=== PATIENT | male | born 1940 | race Caucasian/White ===

== ENCOUNTER 2016-11-19 07:00 | Inpatient (IN) ==
--- NOTE | 2016-11-19 07:53 | XRay Report ---
XR sacrum coccyx Indication: Sacral pain status post fall. Comparison: None. Technique: AP and lateral images of the sacrum and coccyx were obtained. Findings: There is no evidence of displaced fracture. Bone mineralization appears within normal limits. SI joints are bilaterally symmetric. Imaged bowel gas pattern is unremarkable. Fracture of the intratrochanteric right hip is demonstrated. Impression: 1. Intertrochanteric fracture of the right hip is present. 2. No sacral fracture is demonstrated. 11/19/2016 7:50 AM PROCEDURE INTERPRETED AT [facility] DEPARTMENT OF RADIOLOGY Final Report Signed by: Dr. Fortino Hurtado
--- NOTE | 2016-11-19 07:54 | XRay Report ---
XR hip 2v w pelvis RT Indication: Right hip pain status post fall. Comparison: Sacrum same date Technique: AP view of the pelvis with additional AP views of the right hip and internal and external rotation. Findings: An acute comminuted fracture involving the proximal right femur in intertrochanteric region of the hip is demonstrated with [id number] displacement of fracture fragments. Bony structures of pelvis, lower lumbar spine, proximal left femur otherwise is intact. Impression: 1. Acute intertrochanteric fracture right hip is demonstrated. 11/19/2016 7:51 AM PROCEDURE INTERPRETED AT [facility] DEPARTMENT OF RADIOLOGY Final Report Signed by: Dr. Fortino Hurtado
[2016-11-19] MEDS ORDERED: ONDANSETRON 4 MG/2 ML VIAL IV STA (08:16)
[2016-11-19] MEDS ORDERED: MORPHINE 2 MG/1 ML SYRINGE IV STA (08:16)
--- NOTE | 2016-11-19 08:18 | EKG Report ---
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
--- NOTE | 2016-11-19 08:20 | XRay Report ---
XR chest 1V portable Indication: Shortness of breath Comparison: Chest x-ray 04/23/2016 Technique: Portable AP chest was performed. Findings: Heart size is normal. Pulmonary vasculature appears within normal limits. No significant abnormality of the mediastinal contours demonstrated. Lungs are clear for degree of inspiration. Bones and soft tissues demonstrate no significant abnormalities. Impression: 1. No evidence of acute pathology. Atelectatic changes within the lung bases suggested. 11/19/2016 8:17 AM PROCEDURE INTERPRETED AT [facility] DEPARTMENT OF RADIOLOGY Final Report Signed by: Dr. Fortino Hurtado
[2016-11-19] MEDS ORDERED: METOCLOPRAMIDE 10 MG/2 ML VIAL IV STA (08:25)
[2016-11-19] MEDS ORDERED: PANTOPRAZOLE 40 MG VIAL IV STA (08:25)
[2016-11-19 08:30] LABS: Basophils # 0.1 10*3/uL (0.0-0.2); Basophils % 0.4 % (0.0-0.8); Eosinophils # 0.1 10*3/uL (0.0-0.87); Eosinophils % 0.5 % (0.00-10.9); Hematocrit 45.1 VOL% (42.0-52.0); Hemoglobin 16.1 GM/DL (14.0-18.0); Immature Granulocytes % 0.5 %; Immature Granulocytes Absolute 0.08 #; Lymphocytes # 1.5 10*3/uL (1.4-4.0); Lymphocytes % 9.8 % (21.2-54.2); Mean Corpuscular HGB Conc 35.7 GM/DL (32-36); Mean Corpuscular Hemoglobin 33 PG (27-34); Mean Platelet Volume 10.7 FL (9.6-12.0); Monocytes # 0.8 10*3/uL (0.11-0.8); Monocytes % 5.4 % (1.7-12.7); Neutrophils # 12.6 10*3/uL (1.4-7.4); Neutrophils % 83.4 % (38.7-73.9); Platelet Count 152 T/CUMM (130-400); Red Cell Distribution Width 12.4 % (9.3-17.3); White Blood Count 15.1 T/CUMM (4-12)
[2016-11-19] MEDS ORDERED: METOCLOPRAMIDE 10 MG/2 ML VIAL ONE (08:31)
[2016-11-19] MEDS ORDERED: PANTOPRAZOLE 40 MG VIAL IV ONE (08:31)
[2016-11-19] MEDS ORDERED: ONDANSETRON 4 MG/2 ML VIAL ONE (08:31)
[2016-11-19] MEDS ORDERED: MORPHINE 2 MG/1 ML SYRINGE ONE (08:32)
[2016-11-19] MEDS ORDERED: ceFAZolin 2,000 MG in PREMIX 1 EACH IV ONE (08:35)
[2016-11-19 08:38] LABS: PT Patient Result 10.6 SECS; Partial Thromboplastin Time 22.7 SECS (0-40)
[2016-11-19] MEDS ORDERED: ceFAZolin 1,000 MG VIAL ONE (08:52)
--- NOTE | 2016-11-19 08:54 | Orthopedic Consult Note ---
History of Present Illness Chief complaint: Right hip fracture History of present illness: Mr. Frederick is a 76 year old male presenting to [facility] this morning after fall at home reportedly got up fell while trying to get his pants on. His only injury includes pain about the right hip he was unable to bear weight which prompted ER evaluation confirming an intertrochanteric fracture. His family reports that he has been falling a lot lately he does not typically use a cane or a walking device such as a walker. Examination well-developed nourished alert white male has no complaints of pain but either upper extremity with gentle passive range of motion are about the left lower on the right side there is some shortening and mild external rotation to the right lower extremity neurovascularly intact there is no pain about the tibia or knee decreased motion about the right hip secondary to pain X-rays, confirming a minimally displaced intertrochanteric fracture right hip Impression, intertrochanteric fracture right hip Plan: I discussed with he and his family present the diagnosis treatment recommendations include need for operative stabilization of his inotropic fracture plan on using compression hip screw device he is essentially n.p.o. we will proceed later this a.m. is going to be admitted to the hospitalist service due to his multiple medical problems and age. We briefly discussed the postoperative course and the likelihood of rehab Home Medications Medication Instructions Recorded Confirmed Type Allopurinol 300 mg PO DAILY 04/23/16 04/23/16 History Aspirin EC Tab 81 mg PO DAILY 04/23/16 04/23/16 History Dipyridamole/Aspirin 200-25 1 capsule PO BID 04/23/16 04/23/16 History [Aggrenox] Docusate Sodium Cap [Colace Cap] 100 mg PO DAILY 04/23/16 04/23/16 History Donepezil [Aricept] 10 mg PO BEDTIME 04/23/16 04/23/16 History Ferrous Sulfate Tab [Feosol 325 mg PO DAILY 04/23/16 04/23/16 History Original Tab] Fludrocortisone [Florinef] 0.1 mg PO DAILY 04/23/16 04/23/16 History Fluoxetine HCl 40 mg PO DAILY 04/23/16 04/23/16 History Insulin Glargine,Hum.rec.anlog 30 units SUBCUT BEDTIME 04/23/16 04/23/16 History [Lantus SoloStar] Metoprolol Succinate 25 mg PO DAILY 04/23/16 04/23/16 History Multivit-Mins/Iron/Folic/Lycop 1 each PO DAILY 04/23/16 04/23/16 History [Centrum Men's Tablet] Nitroglycerin Sl Tab [Nitrostat] 0.4 mg SL Q5M PRN 04/23/16 04/23/16 History [place]-3/Dha/Epa/Fish Oil [Fish Oil 1 each PO DAILY 04/23/16 04/23/16 History EC 1,200 mg Softgel] Pantoprazole Tab [Protonix Tab] 40 mg PO DAILY 04/23/16 04/23/16 History Saxagliptin HCl [Onglyza] 2.5 mg PO DAILY 04/23/16 04/23/16 History Atorvastatin [Lipitor] 80 mg PO BEDTIME #30 tablet 04/25/16 Rx Allergies Allergy/AdvReac Type Severity Reaction Status Date / Time No Known Allergies Allergy Unverified 04/23/16 15:04 Medical,Surgical,& Family Hx - Medical History Cardio: History of: Hypertension, [place] (STENT), PVD Neurology: History of: Cerebrovascular Accident, Dementia Endocrine: History of: Diabetes Mellitus (IDDM) Rheumatology: History of;: Gout Respiratory: History of: Bronchitis, COPD, Pulmonary Embolism Gastrointestinal: History of: Hemorrhoids (HEMORRHOIDECTOMY) - Surgical History Cardiac Surgeries: Sugical HX of: Femoral-Popliteal Bypass Graft Abdominal Surgeries: Surgical HX of: Cholecystectomy - Family History Family History: Reports;: Family Cancer, Family Diabetes, Family Heart Disease, Family Hypertension - Social History Smoking Status: Former smoker Exam - Constitutional Vitals: Period Temp Pulse Resp BP Sys/Tellez Pulse Ox Last 24 Hr 98.0 F-98.0 F 63-67 18-18 177-189/90-92 93-96 Results - Labs CBC & BMP: 11/19/16 08:04
--- NOTE | 2016-11-19 09:00 | Emergency Department Note ---
Balwinder Ansari Hilary, am scribing for, and in the presence of, Adonis Tolentino MD 08:12. Randa Ansari Phillip K, MD, personally performed the services described in this documentation, ascribed by Clraa Britt in my presence, and it is both accurate and complete 820 . Arrival - Arrival Chief Complaint: Fall Stated Complaint: Fall ED Nursing Triage Note: Pt c/o fall this am slipped while putting on his pants. Denies +LOC. C/O tailbone and right hip pain when he stood up. Mode of Arrival: Stretcher Limitations: No Limitations Source: Patient, RN Notes Reviewed - History of Present Illness HPI Narrative: Pt is a 76 y/o male brought to the ED via EMS for c/o right hip and tailbone pain s/p a fall which happened this AM. He reports that he was trying to put his pants on this morning, lost his balance and fell over landing on his hip. Pt confirms right hip pain but denies LOC. Pt has a PMHx of HTN, PR, PVD, CVA ( right side), Dementia, IDDM and COPD. No other complaints or problems stated in the ED. Onset (ago): hour(s) Consistency: constant Severity: moderate Severity scale (1-10): 3 Quality: sharp Allergies/Adverse Reactions: Allergies Allergy/AdvReac Type Severity Reaction Status Date / Time No Known Allergies Allergy Unverified 04/23/16 15:04 Home Medications: Home Medications Medication Instructions Recorded Confirmed Type Allopurinol 300 mg PO DAILY 04/23/16 04/23/16 History Aspirin EC Tab 81 mg PO DAILY 04/23/16 04/23/16 History Dipyridamole/Aspirin 200-25 1 capsule PO BID 04/23/16 04/23/16 History [Aggrenox] Docusate Sodium Cap [Colace Cap] 100 mg PO DAILY 04/23/16 04/23/16 History Donepezil [Aricept] 10 mg PO BEDTIME 04/23/16 04/23/16 History Ferrous Sulfate Tab [Feosol 325 mg PO DAILY 04/23/16 04/23/16 History Original Tab] Fludrocortisone [Florinef] 0.1 mg PO DAILY 04/23/16 04/23/16 History Fluoxetine HCl 40 mg PO DAILY 04/23/16 04/23/16 History Insulin Glargine,Hum.rec.anlog 30 units SUBCUT BEDTIME 04/23/16 04/23/16 History [Lantus SoloStar] Metoprolol Succinate 25 mg PO DAILY 04/23/16 04/23/16 History Multivit-Mins/Iron/Folic/Lycop 1 each PO DAILY 04/23/16 04/23/16 History [Centrum Men's Tablet] Nitroglycerin Sl Tab [Nitrostat] 0.4 mg SL Q5M PRN 04/23/16 04/23/16 History [place]-3/Dha/Epa/Fish Oil [Fish Oil 1 each PO DAILY 04/23/16 04/23/16 History EC 1,200 mg Softgel] Pantoprazole Tab [Protonix Tab] 40 mg PO DAILY 04/23/16 04/23/16 History Saxagliptin HCl [Onglyza] 2.5 mg PO DAILY 04/23/16 04/23/16 History Atorvastatin [Lipitor] 80 mg PO BEDTIME #30 tablet 04/25/16 Rx Review of System - Review of System 12 point system: reviewed and no additional remarkable complaints except as stated - Review of System Constitutional: Absent: fever Cardiovascular: Absent: syncope Musculoskeletal: Present: leg pain (right hip pain) Medical,Surgical,& Family Hx - Medical History Cardio: History of: Hypertension, [place] (STENT), PVD Neurology: History of: Cerebrovascular Accident, Dementia Endocrine: History of: Diabetes Mellitus (IDDM) Rheumatology: History of;: Gout Respiratory: History of: Bronchitis, COPD, Pulmonary Embolism Gastrointestinal: History of: Hemorrhoids (HEMORRHOIDECTOMY) - Surgical History Cardiac Surgeries: Sugical HX of: Femoral-Popliteal Bypass Graft Abdominal Surgeries: Surgical HX of: Cholecystectomy - Family History Family History: Reports;: Family Cancer, Family Diabetes, Family Heart Disease, Family Hypertension - Social History Smoking Status: Former smoker Exam Vital Signs: Vital Signs Temperature 98.0 F 11/19/16 07:05 Pulse Rate 63 11/19/16 07:30 Respiratory Rate 18 11/19/16 07:05 Blood Pressure 177/92 11/19/16 07:30 O2 Sat by Pulse Oximetry 93 L 11/19/16 07:30 - General General appearance: alert, in no apparent distress - Head Head exam: Present: atraumatic, normocephalic - Eye Eye exam: Present: normal appearance, PERRL, EOMI - ENT ENT exam: Present: mucous membranes moist, TM's normal bilaterally. Absent: mucous membranes dry - Neck Neck exam: Present: full ROM, trachea midline. Absent: tenderness - Chest Chest inspection: Present: symmetric chest wall rise. Absent: tenderness - Respiratory Respiratory exam: Present: normal lung sounds bilaterally. Absent: respiratory distress - Cardiovascular Cardiovascular exam: Present: regular rate, normal rhythm, normal heart sounds. Absent: murmur, rubs, gallop - Abdominal Exam Abdominal exam: Present: soft, normal bowel sounds. Absent: distention, tenderness - Extremities Exam Extremities exam: Absent: full ROM (Right leg is shortened and externally rotated), tenderness (right hip ) - Back Exam Back exam: Present: full ROM. Absent: tenderness - Neurological Exam Neurological exam: Present: alert, oriented X3, CN II-XII intact. Absent: motor sensory deficit - Psychiatric Psychiatric exam: Present: normal affect, normal mood - Skin Skin exam: Present: warm, dry, intact, normal color. Absent: rash Results - Labs CBC & BMP: 11/19/16 08:04 Lab Results: I have reviewed the patients labs Labs: Laboratory Tests 11/19/16 08:04 WBC 15.1 H RBC 4.90 Hgb 16.1 Hct 45.1 Neut % (Auto) 83.4 H Lymph % (Auto) 9.8 L Neut # (Auto) 12.6 H - EKG EKG results: interpreted by SANTY, sinus rhythm (Nonspecific ST-T changes) - Diagnostic Findings Procedure: Chest x-ray: report reviewed by me (No evidence of acute pathology. Atelectatic changes within the lung bases suggested), X-ray: report reviewed by me (Right intertrochanteric hip fracture) Disposition Clinical Impression: Intertrochanteric fracture of right hip Case discussed with: patient Disposition: Still a Patient Condition: Stable Additional Instructions: Admit to the hospitalist and consult orthopedics. Dr. Ruben Tapia saw patient in the ED.
[2016-11-19 09:01] LABS: Albumin 3.8 G/DL (3.4-5.0); Bilirubin,Total 0.9 MG/DL (0.2-1.0); Calcium 9.2 MG/DL (8.5-10.1); Osmolality,Calculated 292.5 MOS/KG (273-304); Potassium 4.5 MMOL/L (3.5-5.1); Total Protein 7.2 G/DL (6.4-8.3)
[2016-11-19] MEDS ORDERED: INSULIN REGULAR 100 UNIT/ML IV STA (09:12)
[2016-11-19] MEDS ORDERED: INSULIN REGULAR 100 UNIT/ML ONE (09:12)
[2016-11-19] MEDS: LACTATED RINGERS 1,000 ML IV SCH ×3 (09:25→19:56)
[2016-11-19] MEDS ORDERED: MORPHINE 2 MG/1 ML SYRINGE IV PRN (09:30)
[2016-11-19] MEDS ORDERED: ONDANSETRON 4 MG/2 ML VIAL IV PRN (09:30)
[2016-11-19] MEDS ORDERED: LACTULOSE 20 GM/30 ML UDCUP PO PRN (09:30)
[2016-11-19] MEDS ORDERED: PROMETHAZINE 25 MG/1 ML VIAL IM PRN (09:30)
[2016-11-19] MEDS ORDERED: GLUCAGON 1 MG VIAL IM PRN ×3 (09:33→18:13)
[2016-11-19] MEDS ORDERED: DEXTROSE 50% 25 GM/50 ML VIAL IV PRN ×3 (09:33→18:13)
--- NOTE | 2016-11-19 10:39 | Anesthesia Post-Op ---
Anesthesia Post OP - Post Ansesthetic Evaluation Patient seen in post op: Yes Resp: within normal limits CV: within normal limits Mental: within normal limits Temp: within normal limits [id number]: within normal limits Nausea and Vomiting: within normal limits Pain: within normal limits
[2016-11-19] MEDS ORDERED: fentaNYL 100 MCG/2 ML VIAL ONE (10:43)
[2016-11-19] MEDS ORDERED: SEVOFLURANE 1 UNIT/15 MINUTE INH ONE (10:43)
[2016-11-19] MEDS ORDERED: MIDAZOLAM 2 MG/2 ML VIAL ONE (10:44)
[2016-11-19] MEDS ORDERED: ACETAMINOPHEN 1,000 MG/100 ML VIAL IV ONE (10:44)
[2016-11-19] MEDS ORDERED: KETAMINE 500 MG/10 ML VIAL ONE (10:44)
[2016-11-19] MEDS ORDERED: ePHEDrine 50 MG/ML AMP ONE (10:44)
--- NOTE | 2016-11-19 10:59 | Hospitalist History & Physical ---
Assessment and Plan (1) Intertrochanteric fracture of right hip Status: Acute Assessment and plan: Surgical repair November 19 Current Visit: Yes (2) Dementia Status: Chronic Assessment and plan: MRI April 2016 showing acute right periventricular stroke with old left frontal ischemic injury and remote cerebellar injury. Presumptive chronic vascular dementia. Current Visit: No (3) Diabetes mellitus Status: Chronic Assessment and plan: Long-standing use of Lantus insulin. Suboptimal control documented previously he will be initiated on intermediate acting insulin with sliding scale coverage. Current Visit: No Qualifiers: Diabetes mellitus type: type 2 History of Present Illness History of present illness: Mr. Frederick is a 76 year old male hospitalized here in April 2016 with MRI showing an acute right parietal periventricular lesion with old ischemic injury in the left frontal lobe and cerebellum. The patient was placed on Aggrenox at that time following a workup showing normal echocardiography and carotid ultrasound. The patient has a established dementia most likely vascular in origin. Earlier today the patient sustained an apparent non-syncopal fall with right hip fracture and was taken from the emergency room to the OR. He is seen in the special care hospital area. Patient is a long-term diabetic on Lantus insulin and Onglyza and on record review indicates consistently poor control of his blood sugars. He has a history of hypertension on chronic active treatment with low-dose beta blockers with old records indicating both a coronary stent and remote femoropopliteal bypass grafting. There is no available history suggesting any active ischemia. Home Medications Medication Instructions Recorded Confirmed Type Allopurinol 300 mg PO DAILY 04/23/16 04/23/16 History Aspirin EC Tab 81 mg PO DAILY 04/23/16 04/23/16 History Dipyridamole/Aspirin 200-25 1 capsule PO BID 04/23/16 04/23/16 History [Aggrenox] Docusate Sodium Cap [Colace Cap] 100 mg PO DAILY 04/23/16 04/23/16 History Donepezil [Aricept] 10 mg PO BEDTIME 04/23/16 04/23/16 History Ferrous Sulfate Tab [Feosol 325 mg PO DAILY 04/23/16 04/23/16 History Original Tab] Fludrocortisone [Florinef] 0.1 mg PO DAILY 04/23/16 04/23/16 History Fluoxetine HCl 40 mg PO DAILY 04/23/16 04/23/16 History Insulin Glargine,Hum.rec.anlog 30 units SUBCUT BEDTIME 04/23/16 04/23/16 History [Lantus SoloStar] Metoprolol Succinate 25 mg PO DAILY 04/23/16 04/23/16 History Multivit-Mins/Iron/Folic/Lycop 1 each PO DAILY 04/23/16 04/23/16 History [Centrum Men's Tablet] Nitroglycerin Sl Tab [Nitrostat] 0.4 mg SL Q5M PRN 04/23/16 04/23/16 History [place]-3/Dha/Epa/Fish Oil [Fish Oil 1 each PO DAILY 04/23/16 04/23/16 History EC 1,200 mg Softgel] Pantoprazole Tab [Protonix Tab] 40 mg PO DAILY 04/23/16 04/23/16 History Saxagliptin HCl [Onglyza] 2.5 mg PO DAILY 04/23/16 04/23/16 History Atorvastatin [Lipitor] 80 mg PO BEDTIME #30 tablet 04/25/16 Rx Allergies Allergy/AdvReac Type Severity Reaction Status Date / Time No Known Allergies Allergy Unverified 04/23/16 15:04 Medical,Surgical,& Family Hx - Medical History Cardio: History of: Hypertension, [place] (STENT), PVD (Femoral pop bypass graft) Neurology: History of: Cerebrovascular Accident (Multifocal with most recent event April 2016), Dementia (Presumptive vascular dementia) Endocrine: History of: Diabetes Mellitus (IDDM) Rheumatology: History of;: Gout Respiratory: History of: Bronchitis, COPD, Pulmonary Embolism - Surgical History Cardiac Surgeries: Sugical HX of: Femoral-Popliteal Bypass Graft Abdominal Surgeries: Surgical HX of: Cholecystectomy Additional Surgical History: Hemorrhoidectomy - Family History Family History: Reports;: Family Cancer, Family Diabetes, Family Heart Disease, Family Hypertension - Social History Smoking Status: Former smoker (None for many years) ROS unobtainable: due to mental status Exam - Constitutional Vitals: Period Temp Pulse Resp BP Sys/Tellez Pulse Ox Last 24 Hr 98.0 F-98.0 F 62-68 18-18 164-209/90-102 93-100 General appearance: over weight - Neck Neck exam: Absent: lymphadenopathy, thyromegaly - Respiratory Respiratory exam: Present: clear to auscultation bilaterally. Absent: rales, rhonchi, wheezes - Cardiovascular Cardiovascular exam: Present: regular rate and rhythm, other (Reduced distal pulses left lower extremity) - GI/Abdominal GI/Abdominal exam: Present: normal bowel sounds. Absent: distended, organomegaly, tenderness - Extremities Exam Extremities exam: Absent: edema - Neurological Exam Neurological exam: Absent: alert Results - Labs CBC & BMP: 11/19/16 08:04 11/19/16 08:04 Labs: Alkaline phosphatase 147 - Impressions Sinus rhythm normal electrocardiogram - Diagnostic Findings Procedure: Chest x-ray: image reviewed by me (Mild aortic ectasia normal heart size coarsening of the lower lobe markings)
--- NOTE | 2016-11-19 11:16 | XRay Report ---
XR hip 2V RT Indication: Intraoperative C-arm fluoroscopy. Comparison: None. Technique: A total of 6 images were obtained intraoperatively using C-arm fluoroscopy. Findings: Images were reviewed and deemed satisfactory by the operative physician. Total fluoroscopy time was 21 seconds. Impression: 1. C-arm usage as detailed. 11/19/2016 11:13 AM PROCEDURE INTERPRETED AT [facility] DEPARTMENT OF RADIOLOGY Final Report Signed by: Dr. Fortino Hurtado
[2016-11-19] MEDS: INSULIN REGULAR 100 UNIT/ML SUBCUT SCH ×3 (12:40→21:20)
[2016-11-19] MEDS: METOPROLOL SUCCINATE XL 25 MG TABLET PO SCH (12:40)
--- NOTE | 2016-11-19 15:28 | Operative Note ---
DATE OF SURGERY: 11/19/2016 PREOPERATIVE DIAGNOSIS: INTERTROCHANTERIC FRACTURE, RIGHT HIP. POSTOPERATIVE DIAGNOSIS: SAME. OPERATIVE PROCEDURE: COMPRESSION HIP SCREW, RIGHT. SURGEON: Zan Miranda Jr., MD ANESTHESIA: General. INDICATIONS: A 76-year-old white male fell this morning, sustaining a mildly displaced intertrochant estefani fracture to the right hip. It was discussed with he and his family the diagnosis and treatment recommendation including the need for stabilization. OPERATIVE PROCEDURE: The patient was taken to the operating room and under general anesthetic positio les in supine position on the fracture table. The right leg placed in a traction boot to the left in a well-padded leg enriquez. Fluoroscopy was brought in to confirm alignment and reduction. The hip w as then prepped and draped in the usual sterile manner. He received Ancef preoperatively. A longitu dinal incision was made over the lateral right hip. Sharp dissection was carried down through skin an d subcutaneous tissue. The IT band was split and the vastus split and reflected anteriorly. A guide pin was placed in the center of the femoral head on both the AP and lateral projections. A 110 mm l ag screw with a 130-degree 4-hole side plate were used to secure reduction. It was secured in a ronel dard technique. Hemostasis was verified. The wound was then irrigated and closed in standard fashio n using 0-Vicryl to the vastus layer as well as IT band layers. Subcutaneous layer was closed with 2 -0 Vicryl and gema for skin. Sterile dressings were applied. He was moved to his bed supine and taken to the recovery room in stable condition.
--- NOTE | 2016-11-19 16:06 | Orthopedic Progress Note ---
Orthopedics - Subjective Interval history: Pain control fair discussed up with PT in a.m. Exam - Constitutional Vitals: Period Temp Pulse Resp BP Sys/Tellez Pulse Ox Last 24 Hr 97.4 F-98.1 F 62-101 16-20 133-209/76-102 92-100 Results - Labs CBC & BMP: 11/19/16 08:04 11/19/16 08:04
[2016-11-19] MEDS: INSULIN NPH 100 UNIT/ML SUBCUT SCH (17:26)
[2016-11-19] MEDS: DIPYRIDAMOLE/ASPIRIN 200-25 MG CAPSULE PO SCH (21:14)
[2016-11-19] MEDS: ATORVASTATIN 40 MG TABLET PO SCH (21:14)
[2016-11-19] MEDS: DONEPEZIL 10 MG TABLET PO SCH (21:14)
[2016-11-20] MEDS: FONDAPARINUX 2.5 MG/0.5 ML SYRINGE SUBCUT SCH (05:28)
[2016-11-20 07:15] LABS: Calcium 8.8 MG/DL (8.5-10.1); Osmolality,Calculated 284.5 MOS/KG (273-304); Potassium 3.8 MMOL/L (3.5-5.1)
[2016-11-20 07:23] LABS: Basophils # 0.1 10*3/uL (0.0-0.2); Basophils % 0.5 % (0.0-0.8); Eosinophils # 0.2 10*3/uL (0.0-0.87); Eosinophils % 1.4 % (0.00-10.9); Hematocrit 38.7 VOL% (42.0-52.0); Immature Granulocytes % 0.4 %; Immature Granulocytes Absolute 0.05 #; Lymphocytes # 2.4 10*3/uL (1.4-4.0); Lymphocytes % 18.4 % (21.2-54.2); Mean Corpuscular HGB Conc 34.9 GM/DL (32-36); Mean Corpuscular Hemoglobin 33 PG (27-34); Mean Corpuscular Volume 94.4 FL (87-102); Mean Platelet Volume 11.3 FL (9.6-12.0); Monocytes # 1.3 10*3/uL (0.11-0.8); Monocytes % 9.6 % (1.7-12.7); Neutrophils % 69.7 % (38.7-73.9); Platelet Count 126 T/CUMM (130-400); Red Cell Distribution Width 12.9 % (9.3-17.3)
[2016-11-20 07:33] LABS: Hemoglobin 13.5 GM/DL (14.0-18.0)
--- NOTE | 2016-11-20 10:17 | Orthopedic Progress Note ---
Assessment and Plan (1) Intertrochanteric fracture of right hip Status: Acute Assessment and plan: Continued care: DVT prophylaxis, pain control, physical therapy Discharge planning to swing bed Current Visit: Yes Orthopedics - Subjective Interval history: Patient seen and examined. No complaints. Sitting up in a chair. Exam - Constitutional Vitals: Period Temp Pulse Resp BP Sys/Tellez Pulse Ox Last 24 Hr 97.1 F-101.2 F 70-109 16-20 133-166/72-94 92-100 - Extremities Exam Extremities exam: Present: normal inspection (Right lower extremity: Dressing clean, dry, intact. Compartments soft. Sensations intact. Pulses 2+. Full active range of motion foot and ankle) Results - Labs CBC & BMP: 11/20/16 06:00 11/20/16 06:00 Lab Results: I have reviewed the past 24 hour labs - Diagnostic Findings Procedure: X-ray: image reviewed by me, report reviewed by me
[2016-11-20] MEDS: INSULIN REGULAR 100 UNIT/ML SUBCUT SCH ×4 (10:28→20:44)
[2016-11-20] MEDS: INSULIN NPH 100 UNIT/ML SUBCUT SCH ×2 (10:31→16:51)
[2016-11-20] MEDS: FLUoxetine 20 MG CAPSULE PO SCH (10:33)
[2016-11-20] MEDS: DIPYRIDAMOLE/ASPIRIN 200-25 MG CAPSULE PO SCH ×2 (10:33→21:07)
[2016-11-20] MEDS: ALLOPURINOL 300 MG TABLET PO SCH (10:33)
[2016-11-20] MEDS: PANTOPRAZOLE 40 MG TABLET PO SCH (10:34)
[2016-11-20] MEDS: DOCUSATE SODIUM 100 MG CAPSULE PO SCH (10:34)
[2016-11-20] MEDS: METOPROLOL SUCCINATE XL 25 MG TABLET PO SCH (10:34)
--- NOTE | 2016-11-20 11:14 | Hospitalist Progress Note ---
Assessment and Plan (1) Hypertension Status: Chronic Assessment and plan: 1)HTN-BP controlled. 2)DM-glucoses are high. Increase SSI to high intensity. On lantus at home, NPH started here, 18U BID. 3)dementia due to strokes- chronic vascular dementia 4)right hip repaired. Current Visit: No Qualifiers: Hypertension type: essential hypertension Qualified Code(s): I10 - Essential (primary) hypertension (2) Diabetes mellitus Status: Chronic Current Visit: No Qualifiers: Diabetes mellitus type: type 2 (3) CKD (chronic kidney disease) Status: Chronic Current Visit: No Qualifiers: Chronic kidney disease stage: stage 3 (moderate) Qualified Code(s): N18.3 - Chronic kidney disease, stage 3 (moderate) (4) Hyperlipidemia Status: Chronic Current Visit: No (5) CVA (cerebral vascular accident) Status: Acute Current Visit: No (6) Dementia Status: Chronic Current Visit: No (7) Intertrochanteric fracture of right hip Status: Acute Current Visit: Yes Hospitalist: Subjective Interval history: Mr Frederick is feeling good today. He complains of some pain in his right hip and his last pain med was last night. Snehal is working on swing bed placement in the same place his is. Exam - Constitutional Vitals: Period Temp Pulse Resp BP Sys/Tellez Pulse Ox Last 24 Hr 97.1 F-101.2 F 70-109 16-20 133-165/72-87 93-100 General appearance: normal weight, no acute distress - Eye Eye exam: Present: EOMI. Absent: scleral icterus - Respiratory Respiratory exam: Present: clear to auscultation bilaterally - Cardiovascular Cardiovascular exam: Present: regular rate and rhythm - GI/Abdominal GI/Abdominal exam: Present: normal bowel sounds, soft. Absent: tenderness - Extremities Exam Extremities exam: Absent: edema - Neurological Exam Neurological exam: Present: alert, oriented X3 Results - Labs CBC & BMP: 11/20/16 06:00 11/20/16 06:00 Lab Results: I have reviewed the past 24 hour labs
[2016-11-20] MEDS: ATORVASTATIN 40 MG TABLET PO SCH (20:44)
[2016-11-20] MEDS: DONEPEZIL 10 MG TABLET PO SCH (20:44)
[2016-11-21] MEDS: FONDAPARINUX 2.5 MG/0.5 ML SYRINGE SUBCUT SCH (05:34)
[2016-11-21 06:33] LABS: Basophils # 0.1 10*3/uL (0.0-0.2); Basophils % 0.4 % (0.0-0.8); Eosinophils # 0.3 10*3/uL (0.0-0.87); Hematocrit 36.6 VOL% (42.0-52.0); Hemoglobin 12.7 GM/DL (14.0-18.0); Immature Granulocytes % 0.7 %; Immature Granulocytes Absolute 0.09 #; Lymphocytes # 2.5 10*3/uL (1.4-4.0); Lymphocytes % 18.9 % (21.2-54.2); Mean Corpuscular HGB Conc 34.7 GM/DL (32-36); Mean Corpuscular Hemoglobin 33 PG (27-34); Mean Corpuscular Volume 95.6 FL (87-102); Mean Platelet Volume 11.6 FL (9.6-12.0); Monocytes # 1.4 10*3/uL (0.11-0.8); Monocytes % 10.5 % (1.7-12.7); Neutrophils % 67.5 % (38.7-73.9); Platelet Count 115 T/CUMM (130-400); Red Blood Count 3.83 MC/CUMM (3.8-5.5); Red Cell Distribution Width 12.8 % (9.3-17.3); White Blood Count 13.3 T/CUMM (4-12)
--- NOTE | 2016-11-21 07:23 | Hospitalist Progress Note ---
Assessment and Plan - Time spent with patient Time spent with patient: Less than 30 minutes (1) Intertrochanteric fracture of right hip Status: Acute Assessment and plan: Continuing postop care and DVT prophylaxis under the guidance of orthopedics. Plan to be discharged to [facility] on Wednesday. Current Visit: Yes (2) Hypertension Status: Chronic Assessment and plan: Blood pressure well controlled. Continue current regimen. Current Visit: No Qualifiers: Hypertension type: essential hypertension Qualified Code(s): I10 - Essential (primary) hypertension (3) Diabetes mellitus Status: Chronic Assessment and plan: Blood sugars have been elevated in the 2-300 range. Continue Accu-Cheks with sliding scale and make adjustments to optimize control. Current Visit: No Qualifiers: Diabetes mellitus type: type 2 (4) CKD (chronic kidney disease) Status: Chronic Assessment and plan: Stable. Avoiding nephrotoxic insults or drugs. Current Visit: No Qualifiers: Chronic kidney disease stage: stage 3 (moderate) Qualified Code(s): N18.3 - Chronic kidney disease, stage 3 (moderate) (5) Hyperlipidemia Status: Chronic Current Visit: No (6) Dementia Status: Chronic Current Visit: No Hospitalist: Subjective Interval history: Mr. Frederick is doing well today. He has no complaints of chest pain, shortness breath, abdominal pain, nausea, vomiting, diarrhea. Tolerating his diet well. States his pain is well controlled. Exam - Constitutional Vitals: Period Temp Pulse Resp BP Sys/Tellez Pulse Ox Last 24 Hr 97.6 F-101 F 68-108 16-20 128-154/72-76 90-97 General appearance: no acute distress - Head Head exam: Present: normocephalic, atraumatic - Eye Eye exam: Present: EOMI Pupils: Present: ALLISON - ENT ENT exam: Present: normal exam - Neck Neck exam: Present: normal inspection. Absent: lymphadenopathy, meningismus, tenderness, thyromegaly - Respiratory Respiratory exam: Present: clear to auscultation bilaterally. Absent: rales, rhonchi, wheezes - Cardiovascular Cardiovascular exam: Present: regular rate and rhythm. Absent: systolic murmur , tachycardia - GI/Abdominal GI/Abdominal exam: Present: normal bowel sounds, soft. Absent: mass, tenderness , rebound - Extremities Exam Extremities exam: Absent: calf tenderness, edema - Back Exam Back exam: Present: normal inspection - Neurological Exam Neurological exam: Present: alert - Psychiatric Psychiatric exam: Present: normal affect, normal mood. Absent: agitated, anxious - Skin Skin exam: Present: warm, dry. Absent: erythema, rash Results - Labs CBC & BMP: 11/21/16 05:22 11/20/16 06:00 Lab Results: I have reviewed the past 24 hour labs
[2016-11-21] MEDS ORDERED: NITROGLYCERIN SL 0.4 MG TABLET SL PRN (07:29)
--- NOTE | 2016-11-21 08:17 | Orthopedic Progress Note ---
Assessment and Plan (1) Intertrochanteric fracture of right hip Status: Acute Assessment and plan: Continued care: DVT prophylaxis, pain control, physical therapy Discharge planning to swing bed Current Visit: Yes Orthopedics - Subjective Interval history: Patient seen and examined. No complaint Exam - Constitutional Vitals: Period Temp Pulse Resp BP Sys/Tellez Pulse Ox Last 24 Hr 97.3 F-101 F 65-108 16-20 128-154/72-76 90-97 - Extremities Exam Extremities exam: Present: normal inspection (Right lower extremity: Dressing clean, dry, intact. Compartments are soft. Sensation is intact. Pulses 2+. Good active range of motion foot and ankle) Results - Labs CBC & BMP: 11/21/16 05:22 11/20/16 06:00
[2016-11-21] MEDS ORDERED: INSULIN GLARGINE 100 UNIT/ML SUBCUT ONE (09:00)
[2016-11-21] MEDS: FLUoxetine 20 MG CAPSULE PO SCH (09:21)
[2016-11-21] MEDS: DIPYRIDAMOLE/ASPIRIN 200-25 MG CAPSULE PO SCH ×2 (09:21→21:10)
[2016-11-21] MEDS: ALLOPURINOL 300 MG TABLET PO SCH (09:22)
[2016-11-21] MEDS: METOPROLOL SUCCINATE XL 25 MG TABLET PO SCH (09:23)
[2016-11-21] MEDS: PANTOPRAZOLE 40 MG TABLET PO SCH (09:24)
[2016-11-21] MEDS: PRAVASTATIN 40 MG TABLET PO SCH (09:24)
[2016-11-21] MEDS: ASPIRIN EC 81 MG TABLET PO SCH (09:25)
[2016-11-21] MEDS: MULTIVITAMIN (CENTRUM) TABLET PO SCH (09:25)
[2016-11-21] MEDS: DOCUSATE SODIUM 100 MG CAPSULE PO SCH (09:26)
[2016-11-21] MEDS: INSULIN REGULAR 100 UNIT/ML SUBCUT SCH ×4 (09:27→21:11)
[2016-11-21] MEDS: FLUDROCORTISONE 0.1 MG TABLET PO SCH (09:55)
[2016-11-21] MEDS: PIOGLITAZONE 15 MG TABLET PO SCH (09:55)
[2016-11-21] MEDS: MAGNESIUM HYDROXIDE SUSP 30 ML UDCUP PO PRN ×2 (09:55→17:37)
[2016-11-21] MEDS: INSULIN NPH 100 UNIT/ML SUBCUT SCH (18:38)
[2016-11-21] MEDS: LACTATED RINGERS 1,000 ML IV SCH (18:38)
[2016-11-21] MEDS ORDERED: INSULIN GLARGINE 100 UNIT/ML SUBCUT SCH (21:00)
[2016-11-21] MEDS: DONEPEZIL 10 MG TABLET PO SCH (21:10)
[2016-11-22 05:45] LABS: Basophils % 0.3 % (0.0-0.8); Eosinophils # 0.2 10*3/uL (0.0-0.87); Eosinophils % 1.8 % (0.00-10.9); Hematocrit 38.2 VOL% (42.0-52.0); Immature Granulocytes Absolute 0.12 #; Lymphocytes # 2.2 10*3/uL (1.4-4.0); Mean Corpuscular Hemoglobin 32 PG (27-34); Monocytes # 1.2 10*3/uL (0.11-0.8); Monocytes % 9.3 % (1.7-12.7); Neutrophils # 8.6 10*3/uL (1.4-7.4); Neutrophils % 69.6 % (38.7-73.9); Platelet Count 142 T/CUMM (130-400); Red Blood Count 4.02 MC/CUMM (3.8-5.5); Red Cell Distribution Width 12.7 % (9.3-17.3); White Blood Count 12.3 T/CUMM (4-12)
[2016-11-22] MEDS: FONDAPARINUX 2.5 MG/0.5 ML SYRINGE SUBCUT SCH (06:36)
--- NOTE | 2016-11-22 07:37 | Discharge Summary ---
Hospital Course - Hospital Course Hospital Course: Mr. Pelletier is a 76-year-old male who had a non-syncopal fall with a right hip fracture and was taken to the emergency room where he he subsequently went to the operating room for surgical repair on November [address] Ruben Juarez. 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 Workup showed normal echocardiographic and carotid Dopplers. He has established dementia which is likely vascular in origin. He is also noted to be long-term diabetic on Lantus and Onglyza in his poorly controlled blood sugars. He also has hypertension, coronary artery disease, remote femoral-popliteal bypass grafting. He has done well postoperatively with control blood pressure. His glucoses remained high and he continued on Accu-Cheks with sliding scale insulin. Had increase in his Lantus dose and will need continued adjustments and optimization. He otherwise remained stable. He was afebrile, tolerating his diet, and on 11/22/16 he was approved for transfer to [facility] for continued care. Time spent on coordinating care and discharge was approximately 35 minutes. - Time spent with patient Time with patient DS: Greater than 30 minutes Diagnosis - Discharge Diagnosis (1) Intertrochanteric fracture of right hip Status: Acute (2) Hypertension Status: Chronic (3) Diabetes mellitus Status: Chronic (4) CKD (chronic kidney disease) Status: Chronic (5) Hyperlipidemia Status: Chronic (6) Dementia Status: Chronic Discharge Plan - Discharge Data Disposition: Disch/Xfer- Rehab Fac Condition at Discharge: Stable Discharge Diet: advance to your usual diet Activity: other (As per or so instructions) Weight Bearing at Discharge: other (Per or so instruction) Contact your physician if you experience:: fever over 101, Shortness of breath, pain uncontrolled by pain medications - Discharge Medications New Dextrose 50% [D50] 25 gm IV PRN PRN vial PRN Reason: Hypoglycemia with IV access Glucagon 1 mg IM PRN PRN vial PRN Reason: Hypoglycemia w/o IV access HYDROcodone/ACETAMIN 7.5-325 [[place] 7.5-325] 1 tablet PO Q4H PRN tablet PRN Reason: Pain Moderate (4-7) HYDROcodone/ACETAMIN 7.5-325 [[place] 7.5-325] 2 tablet PO Q4H PRN tablet PRN Reason: Pain Severe (8-10) Insulin Glargine,Hum.rec.anlog [Lantus SoloStar] 40 unit SUBCUT BEDTIME #3 ml Fondaparinux [Arixtra] 2.5 mg SUBCUT Q24H syringe Insulin Regular [HumuLIN R] See Protocol SUBCUT ACHS unit Continue Multivit-Mins/Iron/Folic/Lycop [Centrum Men's Tablet] 1 each PO DAILY Nitroglycerin Sl Tab [Nitrostat] 0.4 mg SL Q5M PRN PRN Reason: Chest Pain Allopurinol 300 mg PO DAILY Dipyridamole/Aspirin 200-25 [Aggrenox] 1 capsule PO BID Docusate Sodium Cap [Colace Cap] 100 mg PO DAILY Aspirin EC Tab 81 mg PO DAILY Fludrocortisone [Florinef] 0.1 mg PO DAILY Pantoprazole Tab [Protonix Tab] 40 mg PO DAILY Metoprolol Succinate 25 mg PO DAILY Donepezil [Aricept] 10 mg PO BEDTIME Fluoxetine HCl 40 mg PO DAILY Pravastatin Sodium 40 mg PO DAILY Pioglitazone HCl [Actos] 30 mg PO DAILY Discontinued Insulin Glargine,Hum.rec.anlog [Lantus SoloStar] 30 units SUBCUT BEDTIME - Follow Up or Referral - Forms/Instructions Additional Discharge Instructions: Discharge to [facility]. Follow up with Dr. Ruben Tapia per his direction. Follow-up with primary care provider post discharge from [facility] Exam - Constitutional Vitals: Period Temp Pulse Resp BP Sys/Tellez Pulse Ox Last 24 Hr 97.7 F-98.7 F 68-88 16-20 124-164/70-87 90-100 General appearance: no acute distress - Head Head exam: Present: normocephalic, atraumatic - Eye Eye exam: Present: EOMI Pupils: Present: ALLISON - ENT ENT exam: Present: normal exam - Neck Neck exam: Present: normal inspection - Respiratory Respiratory exam: Present: clear to auscultation bilaterally. Absent: rales, rhonchi, wheezes - Cardiovascular Cardiovascular exam: Present: regular rate and rhythm. Absent: tachycardia - GI/Abdominal GI/Abdominal exam: Present: normal bowel sounds, soft. Absent: mass, tenderness , rebound - Extremities Exam Extremities exam: Absent: calf tenderness, edema - Back Exam Back exam: Present: normal inspection - Neurological Exam Neurological exam: Present: alert, oriented X3, CN II-XII intact. Absent: motor sensory deficit - Psychiatric Psychiatric exam: Present: normal affect, normal mood. Absent: agitated, anxious - Skin Skin exam: Present: warm, dry. Absent: rash Discharge Results Labs on day of discharge: Labs from last 24 hours 11/22/16 11/21/16 11/21/16 05:27 19:57 16:05 WBC 12.3 H RBC 4.02 Hgb 13.0 L Hct 38.2 L MCV 95.0 MCH 32 MCHC 34.0 RDW 12.7 Plt Count 142 D MPV 11.0 Neut % (Auto) 69.6 Lymph % (Auto) 18.0 L [place] % (Auto) 9.3 Eos % (Auto) 1.8 Baso % (Auto) 0.3 Neut # (Auto) 8.6 H Lymph # (Auto) 2.2 [place] # (Auto) 1.2 H Eos # (Auto) 0.2 Baso # (Auto) 0.0 Immature Gran % 1.0 Nucleated RBC % 0.0 Immature Gran # 0.12 Nucleated RBCs # 0.00 POC Glucose 327 H 269 H 11/21/16 11/21/16 11:34 07:51 WBC RBC Hgb Hct MCV MCH MCHC RDW Plt Count MPV Neut % (Auto) Lymph % (Auto) [place] % (Auto) Eos % (Auto) Baso % (Auto) Neut # (Auto) Lymph # (Auto) [place] # (Auto) Eos # (Auto) Baso # (Auto) Immature Gran % Nucleated RBC % Immature Gran # Nucleated RBCs # POC Glucose 268 H 252 H DS: Provider Date of admission: 11/19/16 08:44 Primary care physician: . No PCP Attending physician on admission: Rich Jaquez MD Consults: 11/19/16 09:30 Consult to Physical Therapy [CONS] Routine Reason for Physical Therapy: Evaluate and Treat Consult Comment: Advance to weight-bear as tolerated 11/19/16 09:32 Consult to Case Mgmt/Social Srvs [CONS] Routine Reason for Case Mgmt/Social Srvs: Home Health Rehab Equipment Consult to Occupational Therapy [CONS] Routine Reason for Occupational Therapy: Evaluate and Treat Discharging clinician: Catracho Scot Bowen, M Expected date of discharge: 11/22/16
[2016-11-22] MEDS: PRAVASTATIN 40 MG TABLET PO SCH (08:16)
[2016-11-22] MEDS: FLUDROCORTISONE 0.1 MG TABLET PO SCH (08:16)
[2016-11-22] MEDS: PANTOPRAZOLE 40 MG TABLET PO SCH (08:16)
[2016-11-22] MEDS: FLUoxetine 20 MG CAPSULE PO SCH (08:16)
[2016-11-22] MEDS: DIPYRIDAMOLE/ASPIRIN 200-25 MG CAPSULE PO SCH (08:17)
[2016-11-22] MEDS: METOPROLOL SUCCINATE XL 25 MG TABLET PO SCH (08:17)
[2016-11-22] MEDS: DOCUSATE SODIUM 100 MG CAPSULE PO SCH (08:17)
[2016-11-22] MEDS: ASPIRIN EC 81 MG TABLET PO SCH (08:17)
[2016-11-22] MEDS: ALLOPURINOL 300 MG TABLET PO SCH (08:17)
[2016-11-22] MEDS: MULTIVITAMIN (CENTRUM) TABLET PO SCH (08:17)
[2016-11-22] MEDS: PIOGLITAZONE 15 MG TABLET PO SCH (08:18)
[2016-11-22] MEDS: INSULIN REGULAR 100 UNIT/ML SUBCUT SCH ×2 (08:18→13:20)
[2016-11-22 11:40] VITALS: BP 142/81
== END 2016-11-22 13:57 | DRG 482 ==
LOC: EDUNIT# → EDBD → N.ED 07:00 → SUATTDRO 08:44 → N.EDINP 08:44 → N.3E 11:36
PROVIDERS: ADMIT Internal Medicine Cardiovascular Disease; ATTEND Hospitalist

== ENCOUNTER 2017-08-13 14:13 | Inpatient (IN) ==
[2017-08-13 15:04] LABS: Basophils # 0.1 10*3/uL (0.0-0.2); Basophils % 0.5 % (0.0-0.8); Eosinophils # 0.1 10*3/uL (0.0-0.87); Eosinophils % 0.6 % (0.00-10.9); Hematocrit 46.7 VOL% (42.0-52.0); Hemoglobin 16.1 GM/DL (14.0-18.0); Immature Granulocytes % 0.6 %; Immature Granulocytes Absolute 0.09 #; Lymphocytes # 2.8 10*3/uL (1.4-4.0); Lymphocytes % 18.2 % (21.2-54.2); Mean Corpuscular HGB Conc 34.5 GM/DL (32-36); Mean Corpuscular Hemoglobin 31 PG (27-34); Mean Platelet Volume 11.3 FL (9.6-12.0); Monocytes # 1.3 10*3/uL (0.11-0.8); Monocytes % 8.5 % (1.7-12.7); Neutrophils # 11.1 10*3/uL (1.4-7.4); Neutrophils % 71.6 % (38.7-73.9); Platelet Count 181 T/CUMM (130-400); Red Blood Count 5.13 MC/CUMM (3.8-5.5); Red Cell Distribution Width 13.3 % (9.3-17.3); White Blood Count 15.6 T/CUMM (4-12)
[2017-08-13 15:26] LABS: PT Patient Result 10.9 SECS
[2017-08-13 15:39] LABS: Albumin 3.7 G/DL (3.4-5.0); Bilirubin,Total 1.3 MG/DL (0.2-1.0); CKMB % 1.1 %; Calcium 8.9 MG/DL (8.5-10.1); Osmolality,Calculated 290.1 MOS/KG (273-304); Potassium 4.8 MMOL/L (3.5-5.1); Total Protein 7.4 G/DL (6.4-8.3)
[2017-08-13 15:48] LABS: Troponin I Only 3.43 NG/ML (0.00-0.045)
[2017-08-13] MEDS ORDERED: GLUCAGON 1 MG VIAL IM PRN (17:55)
[2017-08-13] MEDS ORDERED: ONDANSETRON 4 MG/2 ML VIAL IV PRN (17:55)
[2017-08-13] MEDS ORDERED: MORPHINE 4 MG/1 ML VIAL IV PRN (17:55)
[2017-08-13] MEDS ORDERED: DEXTROSE 50% 25 GM/50 ML VIAL IV PRN (17:55)
[2017-08-13] MEDS ORDERED: NITROGLYCERIN SL 0.4 MG TABLET SL PRN (17:55)
[2017-08-13] MEDS ORDERED: ACETAMINOPHEN 325 MG TABLET PO PRN (17:55)
[2017-08-13] MEDS: HEPARIN DRIP 25,000 UNITS/500 ML PREMIX IV SCH (18:08)
[2017-08-13] MEDS: SODIUM CHLORIDE 0.9% 1,000 ML IV SCH (18:08)
[2017-08-13] MEDS ORDERED: INSULIN REGULAR 100 UNIT/ML ONE (18:16)
[2017-08-13] MEDS: INSULIN REGULAR 100 UNIT/ML SUBCUT SCH ×2 (18:17→20:25)
[2017-08-13] MEDS: INSULIN GLARGINE 100 UNIT/ML SUBCUT SCH (20:25)
[2017-08-13] MEDS: DONEPEZIL 10 MG TABLET PO SCH (20:25)
[2017-08-13] MEDS ORDERED: DOCUSATE SODIUM 100 MG CAPSULE PO SCH (21:00)
[2017-08-13 21:39] LABS: CKMB % 0.8 %; Troponin I Only 3.39 NG/ML (0.00-0.045)
[2017-08-14 01:11] LABS: Basophils # 0.1 10*3/uL (0.0-0.2); Basophils % 0.6 % (0.0-0.8); Eosinophils # 0.1 10*3/uL (0.0-0.87); Eosinophils % 0.9 % (0.00-10.9); Hematocrit 46.2 VOL% (42.0-52.0); Hemoglobin 16.4 GM/DL (14.0-18.0); Immature Granulocytes % 0.4 %; Immature Granulocytes Absolute 0.06 #; Lymphocytes # 2.7 10*3/uL (1.4-4.0); Lymphocytes % 16.6 % (21.2-54.2); Mean Corpuscular HGB Conc 35.5 GM/DL (32-36); Mean Corpuscular Hemoglobin 32 PG (27-34); Mean Corpuscular Volume 90.6 FL (87-102); Mean Platelet Volume 10.9 FL (9.6-12.0); Monocytes # 1.5 10*3/uL (0.11-0.8); Monocytes % 9.3 % (1.7-12.7); Neutrophils # 11.8 10*3/uL (1.4-7.4); Neutrophils % 72.2 % (38.7-73.9); Platelet Count 177 T/CUMM (130-400); Red Cell Distribution Width 13.7 % (9.3-17.3); White Blood Count 16.3 T/CUMM (4-12)
[2017-08-14 01:40] LABS: Albumin 3.5 G/DL (3.4-5.0); Bilirubin,Total 0.9 MG/DL (0.2-1.0); Calcium 9.3 MG/DL (8.5-10.1); Osmolality,Calculated 278.7 MOS/KG (273-304); Potassium 3.7 MMOL/L (3.5-5.1); Risk Ratio 5.24; Total Protein 7.8 G/DL (6.4-8.3); VLDL CHOLESTEROL 29.6 MG/DL
[2017-08-14] MEDS: SODIUM CHLORIDE 0.9% 1,000 ML IV SCH ×2 (06:37→21:13)
[2017-08-14] MEDS: METOPROLOL TARTRATE 25 MG TABLET PO SCH (08:17)
[2017-08-14] MEDS: FLUoxetine 20 MG CAPSULE PO SCH (08:17)
[2017-08-14] MEDS: PANTOPRAZOLE 40 MG TABLET PO SCH (08:17)
[2017-08-14] MEDS: PIOGLITAZONE 15 MG TABLET PO SCH (08:17)
[2017-08-14] MEDS: MULTIVITAMIN (CENTRUM) TABLET PO SCH (08:17)
[2017-08-14] MEDS: FLUDROCORTISONE 0.1 MG TABLET PO SCH (08:17)
[2017-08-14] MEDS: ASPIRIN EC 81 MG TABLET PO SCH (08:17)
[2017-08-14] MEDS: ALLOPURINOL 300 MG TABLET PO SCH (08:17)
[2017-08-14] MEDS: INSULIN REGULAR 100 UNIT/ML SUBCUT SCH ×4 (08:18→21:14)
[2017-08-14] MEDS: HEPARIN DRIP 25,000 UNITS/500 ML PREMIX IV SCH ×2 (08:23→20:54)
[2017-08-14] MEDS ORDERED: PANTOPRAZOLE 40 MG VIAL IV SCH (09:00)
[2017-08-14] MEDS ORDERED: PRAVASTATIN 40 MG TABLET PO SCH (09:00)
[2017-08-14] MEDS: ATORVASTATIN 80 MG TABLET PO SCH (21:13)
[2017-08-14] MEDS: DONEPEZIL 10 MG TABLET PO SCH (21:13)
[2017-08-14] MEDS: INSULIN GLARGINE 100 UNIT/ML SUBCUT SCH (21:13)
[2017-08-14] MEDS: DOCUSATE SODIUM 100 MG CAPSULE PO SCH (21:13)
[2017-08-15 03:18] LABS: Basophils # 0.1 10*3/uL (0.0-0.2); Basophils % 0.6 % (0.0-0.8); Eosinophils # 0.2 10*3/uL (0.0-0.87); Eosinophils % 1.6 % (0.00-10.9); Hematocrit 44.1 VOL% (42.0-52.0); Hemoglobin 15.4 GM/DL (14.0-18.0); Immature Granulocytes % 0.4 %; Immature Granulocytes Absolute 0.05 #; Lymphocytes # 2.6 10*3/uL (1.4-4.0); Lymphocytes % 21.4 % (21.2-54.2); Mean Corpuscular HGB Conc 34.9 GM/DL (32-36); Mean Corpuscular Hemoglobin 32 PG (27-34); Mean Corpuscular Volume 90.4 FL (87-102); Mean Platelet Volume 12.1 FL (9.6-12.0); Monocytes # 1.2 10*3/uL (0.11-0.8); Monocytes % 9.7 % (1.7-12.7); Neutrophils # 8.1 10*3/uL (1.4-7.4); Neutrophils % 66.3 % (38.7-73.9); Platelet Count 161 T/CUMM (130-400); Red Blood Count 4.88 MC/CUMM (3.8-5.5); Red Cell Distribution Width 13.7 % (9.3-17.3); White Blood Count 12.2 T/CUMM (4-12)
[2017-08-15 03:54] LABS: Albumin 3.4 G/DL (3.4-5.0); Bilirubin,Total 0.6 MG/DL (0.2-1.0); Calcium 8.9 MG/DL (8.5-10.1); Free T4 (Free Thyroxine) 1.16 NG/DL (0.76-1.46); Osmolality,Calculated 284.5 MOS/KG (273-304); Potassium 3.9 MMOL/L (3.5-5.1); Risk Ratio 5.33; Thyroid Stimulating Hormone 1.26 uIU/ml (0.358-3.74); Total Protein 6.7 G/DL (6.4-8.3); VLDL CHOLESTEROL 35.6 MG/DL
[2017-08-15] MEDS ORDERED: HEPARIN 5,000 UNIT/1 ML VIAL IV PRN (04:01)
[2017-08-15] MEDS: ASPIRIN EC 81 MG TABLET PO SCH (09:05)
[2017-08-15] MEDS: INSULIN REGULAR 100 UNIT/ML SUBCUT SCH ×4 (09:05→21:12)
[2017-08-15] MEDS: DOCUSATE SODIUM 100 MG CAPSULE PO SCH ×2 (09:05→21:11)
[2017-08-15] MEDS: FLUoxetine 20 MG CAPSULE PO SCH (09:06)
[2017-08-15] MEDS: PIOGLITAZONE 15 MG TABLET PO SCH (09:06)
[2017-08-15] MEDS: FLUDROCORTISONE 0.1 MG TABLET PO SCH (09:07)
[2017-08-15] MEDS: ALLOPURINOL 300 MG TABLET PO SCH (09:07)
[2017-08-15] MEDS: PANTOPRAZOLE 40 MG TABLET PO SCH (09:07)
[2017-08-15] MEDS: METOPROLOL TARTRATE 25 MG TABLET PO SCH (09:07)
[2017-08-15] MEDS: MULTIVITAMIN (CENTRUM) TABLET PO SCH (09:07)
[2017-08-15] MEDS: HEPARIN DRIP 25,000 UNITS/500 ML PREMIX IV SCH (11:25)
[2017-08-15] MEDS: SODIUM CHLORIDE 0.9% 1,000 ML IV SCH (11:25)
[2017-08-15] MEDS ORDERED: ZIPRASIDONE 20 MG/1 ML VIAL IM ONE ×2 (19:30→21:30)
[2017-08-15] MEDS: DONEPEZIL 10 MG TABLET PO SCH (21:11)
[2017-08-15] MEDS: ATORVASTATIN 80 MG TABLET PO SCH (21:11)
[2017-08-15] MEDS: INSULIN GLARGINE 100 UNIT/ML SUBCUT SCH (21:47)
[2017-08-16] MEDS: HEPARIN DRIP 25,000 UNITS/500 ML PREMIX IV SCH ×2 (00:33→19:48)
[2017-08-16] MEDS: SODIUM CHLORIDE 0.9% 1,000 ML IV SCH ×3 (00:33→23:01)
[2017-08-16 03:16] LABS: Basophils # 0.1 10*3/uL (0.0-0.2); Basophils % 0.5 % (0.0-0.8); Eosinophils # 0.1 10*3/uL (0.0-0.87); Eosinophils % 0.6 % (0.00-10.9); Hematocrit 46.3 VOL% (42.0-52.0); Hemoglobin 15.7 GM/DL (14.0-18.0); Immature Granulocytes % 0.3 %; Immature Granulocytes Absolute 0.04 #; Lymphocytes # 2.3 10*3/uL (1.4-4.0); Lymphocytes % 17.7 % (21.2-54.2); Mean Corpuscular HGB Conc 33.9 GM/DL (32-36); Mean Corpuscular Hemoglobin 31 PG (27-34); Mean Corpuscular Volume 91.7 FL (87-102); Mean Platelet Volume 11.1 FL (9.6-12.0); Monocytes # 1.2 10*3/uL (0.11-0.8); Monocytes % 8.8 % (1.7-12.7); Neutrophils # 9.4 10*3/uL (1.4-7.4); Neutrophils % 72.1 % (38.7-73.9); Platelet Count 154 T/CUMM (130-400); Red Blood Count 5.05 MC/CUMM (3.8-5.5); Red Cell Distribution Width 13.6 % (9.3-17.3)
[2017-08-16] MEDS: FLUDROCORTISONE 0.1 MG TABLET PO SCH (09:07)
[2017-08-16] MEDS: INSULIN REGULAR 100 UNIT/ML SUBCUT SCH ×3 (09:07→22:40)
[2017-08-16] MEDS: ASPIRIN EC 81 MG TABLET PO SCH (09:07)
[2017-08-16] MEDS: DOCUSATE SODIUM 100 MG CAPSULE PO SCH ×2 (09:07→21:54)
[2017-08-16] MEDS: MULTIVITAMIN (CENTRUM) TABLET PO SCH (09:07)
[2017-08-16] MEDS: PIOGLITAZONE 15 MG TABLET PO SCH (09:07)
[2017-08-16] MEDS: PANTOPRAZOLE 40 MG TABLET PO SCH (09:07)
[2017-08-16] MEDS: FLUoxetine 20 MG CAPSULE PO SCH (09:07)
[2017-08-16] MEDS: ALLOPURINOL 300 MG TABLET PO SCH (09:08)
[2017-08-16] MEDS: METOPROLOL TARTRATE 25 MG TABLET PO SCH (09:08)
[2017-08-16] MEDS ORDERED: DIAZEPAM 5 MG TABLET PO ONE (09:36)
[2017-08-16] MEDS ORDERED: HEPARIN/NACL 0.9% 2 UNITS/ML 2,000 ML IV ONE (09:58)
[2017-08-16] MEDS: SODIUM CHLORIDE 0.45% 1,000 ML IV SCH (10:09)
[2017-08-16] MEDS ORDERED: fentaNYL 100 MCG/2 ML VIAL ONE (10:39)
[2017-08-16] MEDS ORDERED: MIDAZOLAM 2 MG/2 ML VIAL ONE (10:40)
[2017-08-16] MEDS ORDERED: ALTEPLASE 2 MG VIAL ONE (11:18)
[2017-08-16] MEDS ORDERED: ALTEPLASE 24 MG in SODIUM CHLORIDE 0.9% 480 ML IV SCH (11:30)
[2017-08-16] MEDS ORDERED: MIDAZOLAM 2 MG/2 ML VIAL IV ONE (11:33)
[2017-08-16] MEDS ORDERED: fentaNYL 100 MCG/2 ML VIAL IV ONE (11:33)
[2017-08-16] MEDS ORDERED: HEPARIN DRIP 25,000 UNITS/500 ML PREMIX IV ONE (11:51)
[2017-08-16] MEDS ORDERED: HEPARIN DRIP 25,000 UNITS/500 ML PREMIX IV SCH (12:30)
[2017-08-16 12:51] LABS: INR 1.1; PT Patient Result 11.4 SECS
[2017-08-16] MEDS ORDERED: hydrALAZINE 20 MG/1 ML VIAL IV PRN (13:00)
[2017-08-16 13:10] LABS: Partial Thromboplastin Time 40.8 SECS (0-40)
[2017-08-16] MEDS ORDERED: HEPARIN/NACL 0.9% 2 UNITS/ML 1,000 ML IV ONE (13:40)
[2017-08-16] MEDS ORDERED: METOPROLOL TARTRATE 25 MG TABLET PO SCH (21:00)
[2017-08-16] MEDS: INSULIN GLARGINE 100 UNIT/ML SUBCUT SCH (21:53)
[2017-08-16] MEDS: DONEPEZIL 10 MG TABLET PO SCH (21:54)
[2017-08-16] MEDS: ATORVASTATIN 80 MG TABLET PO SCH (21:54)
[2017-08-16] MEDS: METOPROLOL TARTRATE 50 MG TABLET PO SCH (21:54)
[2017-08-17 05:48] LABS: INR 1.2; PT Patient Result 12.4 SECS
[2017-08-17] MEDS: INSULIN REGULAR 100 UNIT/ML SUBCUT SCH ×4 (08:24→21:00)
[2017-08-17] MEDS: HEPARIN DRIP 25,000 UNITS/500 ML PREMIX IV SCH (10:12)
[2017-08-17 10:17] LABS: Basophils # 0.1 10*3/uL (0.0-0.2); Basophils % 0.3 % (0.0-0.8); Eosinophils # 0.1 10*3/uL (0.0-0.87); Eosinophils % 0.6 % (0.00-10.9); Hematocrit 42.6 VOL% (42.0-52.0); Hemoglobin 14.8 GM/DL (14.0-18.0); Immature Granulocytes % 0.7 %; Immature Granulocytes Absolute 0.13 #; Lymphocytes # 2.8 10*3/uL (1.4-4.0); Lymphocytes % 15.4 % (21.2-54.2); Mean Corpuscular HGB Conc 34.7 GM/DL (32-36); Mean Corpuscular Hemoglobin 32 PG (27-34); Mean Corpuscular Volume 92.2 FL (87-102); Mean Platelet Volume 12.6 FL (9.6-12.0); Monocytes # 1.8 10*3/uL (0.11-0.8); Monocytes % 9.7 % (1.7-12.7); Neutrophils # 13.4 10*3/uL (1.4-7.4); Neutrophils % 73.3 % (38.7-73.9); Platelet Count 151 T/CUMM (130-400); Red Blood Count 4.62 MC/CUMM (3.8-5.5); White Blood Count 18.3 T/CUMM (4-12)
[2017-08-17 10:45] LABS: Calcium 8.7 MG/DL (8.5-10.1); Osmolality,Calculated 277.7 MOS/KG (273-304); Potassium 3.6 MMOL/L (3.5-5.1)
[2017-08-17] MEDS ORDERED: HEPARIN/NACL 0.9% 2 UNITS/ML 1,000 ML IV ONE ×2 (14:09)
[2017-08-17] MEDS ORDERED: ALTEPLASE 24 MG in SODIUM CHLORIDE 0.9% 480 ML IV SCH (14:30)
[2017-08-17] MEDS ORDERED: HEPARIN DRIP 25,000 UNITS/500 ML PREMIX IV ONE (14:36)
[2017-08-17] MEDS ORDERED: ONDANSETRON 4 MG/2 ML VIAL ONE (14:37)
[2017-08-17] MEDS: PANTOPRAZOLE 40 MG TABLET PO SCH (14:40)
[2017-08-17] MEDS: METOPROLOL TARTRATE 50 MG TABLET PO SCH (14:40)
[2017-08-17] MEDS: MULTIVITAMIN (CENTRUM) TABLET PO SCH (14:40)
[2017-08-17] MEDS: DOCUSATE SODIUM 100 MG CAPSULE PO SCH (14:40)
[2017-08-17] MEDS: PIOGLITAZONE 15 MG TABLET PO SCH (14:40)
[2017-08-17] MEDS: ASPIRIN EC 81 MG TABLET PO SCH (14:40)
[2017-08-17] MEDS: FLUDROCORTISONE 0.1 MG TABLET PO SCH (14:40)
[2017-08-17] MEDS: FLUoxetine 20 MG CAPSULE PO SCH (14:41)
[2017-08-17] MEDS: ISOSORBIDE MONONITRATE 30 MG TABLET PO SCH (14:41)
[2017-08-17] MEDS: SODIUM CHLORIDE 0.45% 1,000 ML IV SCH (14:41)
[2017-08-17] MEDS: ALLOPURINOL 300 MG TABLET PO SCH (14:41)
[2017-08-17] MEDS: SODIUM CHLORIDE 0.9% 1,000 ML IV SCH ×2 (14:59→18:19)
[2017-08-17] MEDS ORDERED: HEPARIN DRIP 25,000 UNITS/500 ML PREMIX IV SCH (15:00)
[2017-08-17 15:20] LABS: INR 1.1; PT Patient Result 11.9 SECS
[2017-08-17 15:33] LABS: Partial Thromboplastin Time 78.1 SECS (0-40)
[2017-08-17] MEDS ORDERED: PROPOFOL 1,000 MG/100 ML BOTTLE IV ONE (16:08)
[2017-08-17] MEDS ORDERED: SEVOFLURANE 1 UNIT/15 MINUTE INH ONE (16:44)
[2017-08-17] MEDS ORDERED: LACTATED RINGERS 1,000 ML IV ONE (16:45)
[2017-08-17] MEDS ORDERED: ETOMIDATE 40 MG/20 ML VIAL IV ONE (16:45)
[2017-08-17] MEDS ORDERED: ROCURONIUM 100 MG/10 ML VIAL IV ONE (16:45)
[2017-08-17] MEDS ORDERED: MIDAZOLAM 2 MG/2 ML VIAL ONE (16:45)
[2017-08-17] MEDS ORDERED: PHENYLEPHRINE 1 MG/10 ML SYRINGE IV ONE (16:45)
[2017-08-17] MEDS ORDERED: fentaNYL 100 MCG/2 ML VIAL ONE (16:45)
[2017-08-17] MEDS: PROPOFOL 1,000 MG/100 ML BOTTLE IV SCH ×2 (17:00→23:00)
[2017-08-17 17:11] LABS: INR 1.1; PT Patient Result 11.8 SECS
[2017-08-17] MEDS: INSULIN GLARGINE 100 UNIT/ML SUBCUT SCH (21:00)
[2017-08-18] MEDS: DONEPEZIL 10 MG TABLET PO SCH ×2 (01:33→20:19)
[2017-08-18] MEDS: DOCUSATE SODIUM 100 MG CAPSULE PO SCH ×3 (01:33→20:19)
[2017-08-18] MEDS: ATORVASTATIN 80 MG TABLET PO SCH ×2 (01:34→20:19)
[2017-08-18] MEDS: METOPROLOL TARTRATE 50 MG TABLET PO SCH ×3 (01:34→20:19)
[2017-08-18 03:46] LABS: ABG Base Excess -1.7 MMOL/L (-2.5-2.5); ABG Oxygen Saturation 99.2 % (95-100); ABG PCO2 35.7 MM HG (35-48); ABG PH 7.406 (7.35-7.45); ABG TCO2 19.6 MMOL/L (23-27); Allen Test Positive; Pt O2 Delivery Device Ventilator
[2017-08-18] MEDS: SODIUM CHLORIDE 0.9% 1,000 ML IV SCH ×2 (04:30→18:07)
[2017-08-18 05:30] LABS: Hematocrit 39.2 VOL% (42.0-52.0); Hemoglobin 13.6 GM/DL (14.0-18.0)
[2017-08-18 05:31] LABS: INR 1.2; PT Patient Result 12.7 SECS
[2017-08-18] MEDS ORDERED: SODIUM CHLORIDE 0.45% 1,000 ML IV SCH (07:00)
[2017-08-18] MEDS: PROPOFOL 1,000 MG/100 ML BOTTLE IV SCH ×3 (07:12→17:03)
[2017-08-18] MEDS: INSULIN REGULAR 100 UNIT/ML SUBCUT SCH ×4 (08:10→20:20)
[2017-08-18] MEDS ORDERED: HEPARIN/NACL 0.9% 2 UNITS/ML 2,000 ML IV ONE (10:24)
[2017-08-18] MEDS ORDERED: HEPARIN 5,000 UNIT/1 ML VIAL ONE (10:24)
[2017-08-18] MEDS: PIOGLITAZONE 15 MG TABLET PO SCH (11:08)
[2017-08-18] MEDS: ASPIRIN EC 81 MG TABLET PO SCH (11:08)
[2017-08-18] MEDS: MULTIVITAMIN (CENTRUM) TABLET PO SCH (11:08)
[2017-08-18] MEDS: FLUoxetine 20 MG CAPSULE PO SCH (11:09)
[2017-08-18] MEDS: FLUDROCORTISONE 0.1 MG TABLET PO SCH (11:09)
[2017-08-18] MEDS: PANTOPRAZOLE 40 MG TABLET PO SCH (11:09)
[2017-08-18] MEDS: ALLOPURINOL 300 MG TABLET PO SCH (11:09)
[2017-08-18] MEDS: ISOSORBIDE MONONITRATE 30 MG TABLET PO SCH (11:09)
[2017-08-18] MEDS: SODIUM CHLORIDE 0.45% 1,000 ML IV SCH (11:25)
[2017-08-18 14:06] LABS: Partial Thromboplastin Time 31.9 SECS (0-40)
[2017-08-18 17:51] LABS: Apearance,Urine Slightly Hazy (Clear); Bilirubin,Urine Negative (Negative); Blood, Urine Moderate mg/dL (Negative); Glucose,Urine (UA) Negative (Negative); Hyaline Casts,Urine 1 /LPF (0-3); Ketones,Urine 5 mg/dL (Negative); Mucus,Urine Occasional /LPF (Occasional); Nitrite,Urine Negative (Negative); Protein,Urine 30 MG/DL; RBC,Urine 5 /HPF (0-4); Squamous Epithelial Cell,Urine Occasional /HPF (0-10); Urine Color Amber (Yellow); Urine Specific Gravity 1.048 (1.001-1.035); WBC,Urine 5 /HPF (0-6)
[2017-08-18] MEDS: INSULIN GLARGINE 100 UNIT/ML SUBCUT SCH (20:19)
[2017-08-19 02:34] LABS: Partial Thromboplastin Time 29.3 SECS (0-40)
[2017-08-19] MEDS: FLUoxetine 20 MG CAPSULE PO SCH (07:59)
[2017-08-19] MEDS: MULTIVITAMIN (CENTRUM) TABLET PO SCH (07:59)
[2017-08-19] MEDS: FLUDROCORTISONE 0.1 MG TABLET PO SCH (07:59)
[2017-08-19] MEDS: SODIUM CHLORIDE 0.9% 1,000 ML IV SCH (08:00)
[2017-08-19] MEDS: ASPIRIN EC 81 MG TABLET PO SCH (08:00)
[2017-08-19] MEDS: METOPROLOL TARTRATE 50 MG TABLET PO SCH ×2 (08:00→20:16)
[2017-08-19] MEDS: PANTOPRAZOLE 40 MG TABLET PO SCH (08:00)
[2017-08-19] MEDS: ISOSORBIDE MONONITRATE 30 MG TABLET PO SCH (08:00)
[2017-08-19] MEDS: PIOGLITAZONE 15 MG TABLET PO SCH (08:00)
[2017-08-19] MEDS: ALLOPURINOL 300 MG TABLET PO SCH (08:00)
[2017-08-19] MEDS: DOCUSATE SODIUM 100 MG CAPSULE PO SCH ×2 (08:00→20:15)
[2017-08-19] MEDS: INSULIN REGULAR 100 UNIT/ML SUBCUT SCH ×4 (08:00→21:13)
[2017-08-19] MEDS: CLOPIDOGREL 75 MG TABLET PO SCH (09:21)
[2017-08-19] MEDS: TAMSULOSIN 0.4 MG CAPSULE PO SCH (11:23)
[2017-08-19 14:27] LABS: Partial Thromboplastin Time 29.2 SECS (0-40)
[2017-08-19] MEDS: INSULIN GLARGINE 100 UNIT/ML SUBCUT SCH (20:16)
[2017-08-19] MEDS: ATORVASTATIN 80 MG TABLET PO SCH (20:16)
[2017-08-19] MEDS: DONEPEZIL 10 MG TABLET PO SCH (20:16)
[2017-08-20 05:14] LABS: Partial Thromboplastin Time 30.9 SECS (0-40)
[2017-08-20] MEDS: INSULIN REGULAR 100 UNIT/ML SUBCUT SCH ×4 (08:18→21:23)
[2017-08-20] MEDS: TAMSULOSIN 0.4 MG CAPSULE PO SCH ×2 (09:29→21:21)
[2017-08-20] MEDS: ISOSORBIDE MONONITRATE 30 MG TABLET PO SCH (09:29)
[2017-08-20] MEDS: ASPIRIN EC 81 MG TABLET PO SCH (09:29)
[2017-08-20] MEDS: DOCUSATE SODIUM 100 MG CAPSULE PO SCH ×2 (09:29→21:22)
[2017-08-20] MEDS: METOPROLOL TARTRATE 50 MG TABLET PO SCH ×2 (09:29→21:21)
[2017-08-20] MEDS: MULTIVITAMIN (CENTRUM) TABLET PO SCH (09:29)
[2017-08-20] MEDS: CLOPIDOGREL 75 MG TABLET PO SCH (09:29)
[2017-08-20] MEDS: FLUDROCORTISONE 0.1 MG TABLET PO SCH (09:29)
[2017-08-20] MEDS: PIOGLITAZONE 15 MG TABLET PO SCH (09:30)
[2017-08-20] MEDS: ALLOPURINOL 300 MG TABLET PO SCH (09:30)
[2017-08-20] MEDS: PANTOPRAZOLE 40 MG TABLET PO SCH (09:30)
[2017-08-20] MEDS: FLUoxetine 20 MG CAPSULE PO SCH (09:30)
[2017-08-20] MEDS: FINASTERIDE 5 MG TABLET PO SCH (10:19)
[2017-08-20 15:05] LABS: Partial Thromboplastin Time 29.6 SECS (0-40)
[2017-08-20] MEDS: DONEPEZIL 10 MG TABLET PO SCH (21:21)
[2017-08-20] MEDS: ATORVASTATIN 80 MG TABLET PO SCH (21:21)
[2017-08-20] MEDS: INSULIN GLARGINE 100 UNIT/ML SUBCUT SCH (21:26)
[2017-08-21] MEDS: INSULIN REGULAR 100 UNIT/ML SUBCUT SCH ×4 (09:04→21:41)
[2017-08-21] MEDS: MULTIVITAMIN (CENTRUM) TABLET PO SCH (09:06)
[2017-08-21] MEDS: PANTOPRAZOLE 40 MG TABLET PO SCH (09:06)
[2017-08-21] MEDS: METOPROLOL TARTRATE 50 MG TABLET PO SCH ×2 (09:06→21:43)
[2017-08-21] MEDS: FLUDROCORTISONE 0.1 MG TABLET PO SCH (09:06)
[2017-08-21] MEDS: TAMSULOSIN 0.4 MG CAPSULE PO SCH ×2 (09:06→21:43)
[2017-08-21] MEDS: CLOPIDOGREL 75 MG TABLET PO SCH (09:06)
[2017-08-21] MEDS: PIOGLITAZONE 15 MG TABLET PO SCH (09:06)
[2017-08-21] MEDS: ASPIRIN EC 81 MG TABLET PO SCH (09:06)
[2017-08-21] MEDS: FINASTERIDE 5 MG TABLET PO SCH (09:06)
[2017-08-21] MEDS: ALLOPURINOL 300 MG TABLET PO SCH (09:06)
[2017-08-21] MEDS: ISOSORBIDE MONONITRATE 30 MG TABLET PO SCH (09:06)
[2017-08-21] MEDS: DOCUSATE SODIUM 100 MG CAPSULE PO SCH ×2 (09:06→21:43)
[2017-08-21] MEDS: FLUoxetine 20 MG CAPSULE PO SCH (09:06)
[2017-08-21] MEDS: INSULIN GLARGINE 100 UNIT/ML SUBCUT SCH (21:40)
[2017-08-21] MEDS: ATORVASTATIN 80 MG TABLET PO SCH (21:43)
[2017-08-21] MEDS: DONEPEZIL 10 MG TABLET PO SCH (21:43)
[2017-08-22] MEDS: INSULIN REGULAR 100 UNIT/ML SUBCUT SCH ×4 (07:54→22:39)
[2017-08-22] MEDS: TAMSULOSIN 0.4 MG CAPSULE PO SCH ×2 (09:04→22:38)
[2017-08-22] MEDS: ISOSORBIDE MONONITRATE 30 MG TABLET PO SCH (09:04)
[2017-08-22] MEDS: MULTIVITAMIN (CENTRUM) TABLET PO SCH (09:04)
[2017-08-22] MEDS: DOCUSATE SODIUM 100 MG CAPSULE PO SCH ×2 (09:04→22:38)
[2017-08-22] MEDS: ALLOPURINOL 300 MG TABLET PO SCH (09:04)
[2017-08-22] MEDS: FLUDROCORTISONE 0.1 MG TABLET PO SCH (09:04)
[2017-08-22] MEDS: METOPROLOL TARTRATE 50 MG TABLET PO SCH ×2 (09:04→22:38)
[2017-08-22] MEDS: ASPIRIN EC 81 MG TABLET PO SCH (09:05)
[2017-08-22] MEDS: PIOGLITAZONE 15 MG TABLET PO SCH (09:05)
[2017-08-22] MEDS: FLUoxetine 20 MG CAPSULE PO SCH (09:05)
[2017-08-22] MEDS: PANTOPRAZOLE 40 MG TABLET PO SCH (09:05)
[2017-08-22] MEDS: FINASTERIDE 5 MG TABLET PO SCH (09:05)
[2017-08-22] MEDS: CLOPIDOGREL 75 MG TABLET PO SCH (09:05)
[2017-08-22] MEDS: DONEPEZIL 10 MG TABLET PO SCH (22:38)
[2017-08-22] MEDS: ATORVASTATIN 80 MG TABLET PO SCH (22:38)
[2017-08-22] MEDS: INSULIN GLARGINE 100 UNIT/ML SUBCUT SCH (22:39)
[2017-08-23] MEDS: INSULIN REGULAR 100 UNIT/ML SUBCUT SCH ×4 (08:45→22:07)
[2017-08-23] MEDS: FLUoxetine 20 MG CAPSULE PO SCH (08:46)
[2017-08-23] MEDS: MULTIVITAMIN (CENTRUM) TABLET PO SCH (08:46)
[2017-08-23] MEDS: FINASTERIDE 5 MG TABLET PO SCH (08:46)
[2017-08-23] MEDS: DOCUSATE SODIUM 100 MG CAPSULE PO SCH ×2 (08:46→22:07)
[2017-08-23] MEDS: FLUDROCORTISONE 0.1 MG TABLET PO SCH (08:47)
[2017-08-23] MEDS: CLOPIDOGREL 75 MG TABLET PO SCH (08:47)
[2017-08-23] MEDS: ASPIRIN EC 81 MG TABLET PO SCH (08:47)
[2017-08-23] MEDS: PANTOPRAZOLE 40 MG TABLET PO SCH (08:47)
[2017-08-23] MEDS: ISOSORBIDE MONONITRATE 30 MG TABLET PO SCH (08:47)
[2017-08-23] MEDS: METOPROLOL TARTRATE 50 MG TABLET PO SCH ×2 (08:47→22:07)
[2017-08-23] MEDS: ALLOPURINOL 300 MG TABLET PO SCH (08:47)
[2017-08-23] MEDS: TAMSULOSIN 0.4 MG CAPSULE PO SCH ×2 (08:47→22:07)
[2017-08-23] MEDS: PIOGLITAZONE 15 MG TABLET PO SCH (11:45)
[2017-08-23] MEDS: DONEPEZIL 10 MG TABLET PO SCH (22:07)
[2017-08-23] MEDS: INSULIN GLARGINE 100 UNIT/ML SUBCUT SCH (22:07)
[2017-08-23] MEDS: ATORVASTATIN 80 MG TABLET PO SCH (22:07)
[2017-08-24] MEDS: INSULIN REGULAR 100 UNIT/ML SUBCUT SCH ×4 (08:04→20:49)
[2017-08-24] MEDS: PIOGLITAZONE 15 MG TABLET PO SCH (08:59)
[2017-08-24] MEDS: ALLOPURINOL 300 MG TABLET PO SCH (09:00)
[2017-08-24] MEDS: ASPIRIN EC 81 MG TABLET PO SCH (09:00)
[2017-08-24] MEDS: METOPROLOL TARTRATE 50 MG TABLET PO SCH ×2 (09:00→20:49)
[2017-08-24] MEDS: FLUoxetine 20 MG CAPSULE PO SCH (09:00)
[2017-08-24] MEDS: MULTIVITAMIN (CENTRUM) TABLET PO SCH (09:00)
[2017-08-24] MEDS: PANTOPRAZOLE 40 MG TABLET PO SCH (09:00)
[2017-08-24] MEDS: TAMSULOSIN 0.4 MG CAPSULE PO SCH ×2 (09:00→20:49)
[2017-08-24] MEDS: FINASTERIDE 5 MG TABLET PO SCH (09:00)
[2017-08-24] MEDS: DOCUSATE SODIUM 100 MG CAPSULE PO SCH ×2 (09:00→20:49)
[2017-08-24] MEDS: CLOPIDOGREL 75 MG TABLET PO SCH (09:00)
[2017-08-24] MEDS: ISOSORBIDE MONONITRATE 30 MG TABLET PO SCH (09:00)
[2017-08-24] MEDS: FLUDROCORTISONE 0.1 MG TABLET PO SCH (09:00)
[2017-08-24] MEDS ORDERED: TUBERCULIN SKIN TEST 0.1 ML SYRINGE INTRADERM ONE (09:48)
[2017-08-24] MEDS: DONEPEZIL 10 MG TABLET PO SCH (20:49)
[2017-08-24] MEDS: ATORVASTATIN 80 MG TABLET PO SCH (20:49)
[2017-08-24] MEDS: INSULIN GLARGINE 100 UNIT/ML SUBCUT SCH (20:49)
[2017-08-25] MEDS: INSULIN REGULAR 100 UNIT/ML SUBCUT SCH ×4 (08:05→20:31)
[2017-08-25] MEDS: FLUoxetine 20 MG CAPSULE PO SCH (09:27)
[2017-08-25] MEDS: METOPROLOL TARTRATE 50 MG TABLET PO SCH ×2 (09:27→20:29)
[2017-08-25] MEDS: CLOPIDOGREL 75 MG TABLET PO SCH (09:27)
[2017-08-25] MEDS: ISOSORBIDE MONONITRATE 30 MG TABLET PO SCH (09:28)
[2017-08-25] MEDS: FINASTERIDE 5 MG TABLET PO SCH (09:28)
[2017-08-25] MEDS: PIOGLITAZONE 15 MG TABLET PO SCH (09:28)
[2017-08-25] MEDS: FLUDROCORTISONE 0.1 MG TABLET PO SCH (09:28)
[2017-08-25] MEDS: ALLOPURINOL 300 MG TABLET PO SCH (09:28)
[2017-08-25] MEDS: DOCUSATE SODIUM 100 MG CAPSULE PO SCH ×2 (09:28→20:29)
[2017-08-25] MEDS: ASPIRIN EC 81 MG TABLET PO SCH (09:28)
[2017-08-25] MEDS: PANTOPRAZOLE 40 MG TABLET PO SCH (09:28)
[2017-08-25] MEDS: MULTIVITAMIN (CENTRUM) TABLET PO SCH (09:28)
[2017-08-25] MEDS: TAMSULOSIN 0.4 MG CAPSULE PO SCH ×2 (09:28→20:29)
[2017-08-25] MEDS: INSULIN GLARGINE 100 UNIT/ML SUBCUT SCH (20:29)
[2017-08-25] MEDS: ATORVASTATIN 80 MG TABLET PO SCH (20:29)
[2017-08-25] MEDS: DONEPEZIL 10 MG TABLET PO SCH (20:29)
[2017-08-26] MEDS: INSULIN REGULAR 100 UNIT/ML SUBCUT SCH ×4 (07:48→21:26)
[2017-08-26] MEDS: MULTIVITAMIN (CENTRUM) TABLET PO SCH (09:07)
[2017-08-26] MEDS: CLOPIDOGREL 75 MG TABLET PO SCH (09:07)
[2017-08-26] MEDS: PIOGLITAZONE 15 MG TABLET PO SCH (09:07)
[2017-08-26] MEDS: FINASTERIDE 5 MG TABLET PO SCH (09:07)
[2017-08-26] MEDS: ISOSORBIDE MONONITRATE 30 MG TABLET PO SCH (09:07)
[2017-08-26] MEDS: ASPIRIN EC 81 MG TABLET PO SCH (09:07)
[2017-08-26] MEDS: FLUoxetine 20 MG CAPSULE PO SCH (09:07)
[2017-08-26] MEDS: DOCUSATE SODIUM 100 MG CAPSULE PO SCH ×2 (09:07→21:26)
[2017-08-26] MEDS: PANTOPRAZOLE 40 MG TABLET PO SCH (09:08)
[2017-08-26] MEDS: FLUDROCORTISONE 0.1 MG TABLET PO SCH (09:08)
[2017-08-26] MEDS: METOPROLOL TARTRATE 50 MG TABLET PO SCH ×3 (09:08→21:34)
[2017-08-26] MEDS: TAMSULOSIN 0.4 MG CAPSULE PO SCH ×2 (09:08→21:26)
[2017-08-26] MEDS: ALLOPURINOL 300 MG TABLET PO SCH (09:08)
[2017-08-26] MEDS: DONEPEZIL 10 MG TABLET PO SCH (21:26)
[2017-08-26] MEDS: ATORVASTATIN 80 MG TABLET PO SCH (21:26)
[2017-08-26] MEDS: INSULIN GLARGINE 100 UNIT/ML SUBCUT SCH (21:31)
[2017-08-27] MEDS: INSULIN REGULAR 100 UNIT/ML SUBCUT SCH ×4 (09:39→20:34)
[2017-08-27] MEDS: FLUDROCORTISONE 0.1 MG TABLET PO SCH (10:01)
[2017-08-27] MEDS: ISOSORBIDE MONONITRATE 30 MG TABLET PO SCH (10:02)
[2017-08-27] MEDS: DOCUSATE SODIUM 100 MG CAPSULE PO SCH ×2 (10:02→20:34)
[2017-08-27] MEDS: ASPIRIN EC 81 MG TABLET PO SCH (10:02)
[2017-08-27] MEDS: MULTIVITAMIN (CENTRUM) TABLET PO SCH (10:02)
[2017-08-27] MEDS: FLUoxetine 20 MG CAPSULE PO SCH (10:02)
[2017-08-27] MEDS: FINASTERIDE 5 MG TABLET PO SCH (10:03)
[2017-08-27] MEDS: ALLOPURINOL 300 MG TABLET PO SCH (10:03)
[2017-08-27] MEDS: PIOGLITAZONE 15 MG TABLET PO SCH (10:03)
[2017-08-27] MEDS: TAMSULOSIN 0.4 MG CAPSULE PO SCH ×2 (10:03→20:34)
[2017-08-27] MEDS: METOPROLOL TARTRATE 50 MG TABLET PO SCH ×2 (10:03→20:36)
[2017-08-27] MEDS: CLOPIDOGREL 75 MG TABLET PO SCH (10:03)
[2017-08-27] MEDS: PANTOPRAZOLE 40 MG TABLET PO SCH (10:03)
[2017-08-27] MEDS: DONEPEZIL 10 MG TABLET PO SCH (20:34)
[2017-08-27] MEDS: ATORVASTATIN 80 MG TABLET PO SCH (20:34)
[2017-08-27] MEDS: INSULIN GLARGINE 100 UNIT/ML SUBCUT SCH (20:35)
[2017-08-28] MEDS: INSULIN REGULAR 100 UNIT/ML SUBCUT SCH ×4 (08:20→22:45)
[2017-08-28] MEDS: ASPIRIN EC 81 MG TABLET PO SCH (08:21)
[2017-08-28] MEDS: ISOSORBIDE MONONITRATE 30 MG TABLET PO SCH (08:21)
[2017-08-28] MEDS: DOCUSATE SODIUM 100 MG CAPSULE PO SCH ×2 (08:21→20:25)
[2017-08-28] MEDS: METOPROLOL TARTRATE 50 MG TABLET PO SCH ×2 (08:21→20:25)
[2017-08-28] MEDS: FINASTERIDE 5 MG TABLET PO SCH (08:21)
[2017-08-28] MEDS: CLOPIDOGREL 75 MG TABLET PO SCH (08:21)
[2017-08-28] MEDS: ALLOPURINOL 300 MG TABLET PO SCH (08:21)
[2017-08-28] MEDS: PANTOPRAZOLE 40 MG TABLET PO SCH (08:21)
[2017-08-28] MEDS: PIOGLITAZONE 15 MG TABLET PO SCH (08:21)
[2017-08-28] MEDS: FLUoxetine 20 MG CAPSULE PO SCH (08:21)
[2017-08-28] MEDS: FLUDROCORTISONE 0.1 MG TABLET PO SCH (08:22)
[2017-08-28] MEDS: MULTIVITAMIN (CENTRUM) TABLET PO SCH (08:22)
[2017-08-28] MEDS: TAMSULOSIN 0.4 MG CAPSULE PO SCH ×2 (08:22→20:25)
[2017-08-28] MEDS: DONEPEZIL 10 MG TABLET PO SCH (20:25)
[2017-08-28] MEDS: ATORVASTATIN 80 MG TABLET PO SCH (20:25)
[2017-08-28] MEDS: INSULIN GLARGINE 100 UNIT/ML SUBCUT SCH (20:34)
[2017-08-29] MEDS: METOPROLOL TARTRATE 50 MG TABLET PO SCH ×2 (09:02→20:30)
[2017-08-29] MEDS: INSULIN REGULAR 100 UNIT/ML SUBCUT SCH ×4 (09:02→20:31)
[2017-08-29] MEDS: TAMSULOSIN 0.4 MG CAPSULE PO SCH ×2 (09:02→20:30)
[2017-08-29] MEDS: DOCUSATE SODIUM 100 MG CAPSULE PO SCH ×2 (09:02→20:30)
[2017-08-29] MEDS: MULTIVITAMIN (CENTRUM) TABLET PO SCH (09:03)
[2017-08-29] MEDS: FLUDROCORTISONE 0.1 MG TABLET PO SCH (09:03)
[2017-08-29] MEDS: ISOSORBIDE MONONITRATE 30 MG TABLET PO SCH (09:03)
[2017-08-29] MEDS: CLOPIDOGREL 75 MG TABLET PO SCH (09:03)
[2017-08-29] MEDS: FINASTERIDE 5 MG TABLET PO SCH (09:03)
[2017-08-29] MEDS: PANTOPRAZOLE 40 MG TABLET PO SCH (09:03)
[2017-08-29] MEDS: ALLOPURINOL 300 MG TABLET PO SCH (09:03)
[2017-08-29] MEDS: PIOGLITAZONE 15 MG TABLET PO SCH (09:03)
[2017-08-29] MEDS: FLUoxetine 20 MG CAPSULE PO SCH (09:03)
[2017-08-29] MEDS: ASPIRIN EC 81 MG TABLET PO SCH (09:03)
[2017-08-29] MEDS: DONEPEZIL 10 MG TABLET PO SCH (20:30)
[2017-08-29] MEDS: ATORVASTATIN 80 MG TABLET PO SCH (20:30)
[2017-08-29] MEDS: INSULIN GLARGINE 100 UNIT/ML SUBCUT SCH (20:30)
[2017-08-30] MEDS: INSULIN REGULAR 100 UNIT/ML SUBCUT SCH ×3 (09:01→16:42)
[2017-08-30] MEDS: TAMSULOSIN 0.4 MG CAPSULE PO SCH (09:12)
[2017-08-30] MEDS: CLOPIDOGREL 75 MG TABLET PO SCH (09:12)
[2017-08-30] MEDS: FLUoxetine 20 MG CAPSULE PO SCH (09:12)
[2017-08-30] MEDS: PANTOPRAZOLE 40 MG TABLET PO SCH (09:12)
[2017-08-30] MEDS: PIOGLITAZONE 15 MG TABLET PO SCH (09:12)
[2017-08-30] MEDS: FINASTERIDE 5 MG TABLET PO SCH (09:12)
[2017-08-30] MEDS: ALLOPURINOL 300 MG TABLET PO SCH (09:12)
[2017-08-30] MEDS: DOCUSATE SODIUM 100 MG CAPSULE PO SCH (09:12)
[2017-08-30] MEDS: ISOSORBIDE MONONITRATE 30 MG TABLET PO SCH (09:12)
[2017-08-30] MEDS: FLUDROCORTISONE 0.1 MG TABLET PO SCH (09:12)
[2017-08-30] MEDS: MULTIVITAMIN (CENTRUM) TABLET PO SCH (09:13)
[2017-08-30] MEDS: METOPROLOL TARTRATE 50 MG TABLET PO SCH (09:13)
[2017-08-30] MEDS: ASPIRIN EC 81 MG TABLET PO SCH (09:13)
[2017-08-30 16:19] VITALS: BP 109/64
== END 2017-08-30 17:24 | DRG 271 ==
LOC: EDUNIT# → EDBD → N.ED 14:13 → N.EDINP 16:37 → N.ICU 17:43 → N.TELEN 08-14 10:44 → N.ICU 08-16 12:12 → N.TELES 08-19 17:33
PROVIDERS: ADMIT Family Medicine; ATTEND Family Medicine
PROC: IRURORE (2017-08-18 09:40)

== ENCOUNTER 2017-09-01 11:59 | Inpatient (IN) ==
[2017-09-01] MEDS ORDERED: SODIUM CHLORIDE 0.9% 500 ML IV STA (12:49)
[2017-09-01 13:13] LABS: Basophils # 0.1 10*3/uL (0.0-0.2); Basophils % 0.2 % (0.0-0.8); Hematocrit 29.5 VOL% (42.0-52.0); Hemoglobin 9.7 GM/DL (14.0-18.0); Immature Granulocytes % 1.8 %; Immature Granulocytes Absolute 0.71 #; Lymphocytes # 0.3 10*3/uL (1.4-4.0); Lymphocytes % 0.8 % (21.2-54.2); Mean Corpuscular HGB Conc 32.9 GM/DL (32-36); Mean Corpuscular Hemoglobin 31 PG (27-34); Mean Corpuscular Volume 94.2 FL (87-102); Monocytes % 2.6 % (1.7-12.7); Neutrophils # 37.7 10*3/uL (1.4-7.4); Neutrophils % 94.6 % (38.7-73.9); Platelet Count 349 T/CUMM (130-400); Red Blood Count 3.13 MC/CUMM (3.8-5.5); Red Cell Distribution Width 14.2 % (9.3-17.3); White Blood Count 39.9 T/CUMM (4-12)
[2017-09-01 13:17] LABS: Apearance,Urine CLEAR (Clear); Bacteria,Urine Occasional /HPF (Few); Bilirubin,Urine Negative (Negative); Blood, Urine Small mg/dL (Negative); Glucose,Urine (UA) Negative (Negative); Hyaline Casts,Urine 4 /LPF (0-3); Ketones,Urine Negative (Negative); Mucus,Urine Occasional /LPF (Occasional); Nitrite,Urine Negative (Negative); Protein,Urine Negative; RBC,Urine 8 /HPF (0-4); Urine Color Yellow (Yellow); Urine Specific Gravity 1.013 (1.001-1.035); WBC,Urine 1 /HPF (0-6)
[2017-09-01 13:19] LABS: INR 1.2; PT Patient Result 12.7 SECS
[2017-09-01 13:44] LABS: Band Neutrophils 2 % (0-10); Lymphocytes 4 % (20-55); Segmented Neutrophils 91 % (50-85); Total Cells Counted 100
[2017-09-01 13:45] LABS: Hypochromasia 2+; Microcytosis 1+; Platelet Estimate Adequate
[2017-09-01 13:52] LABS: Albumin 1.7 G/DL (3.4-5.0); Bilirubin,Total 0.7 MG/DL (0.2-1.0); Calcium 7.8 MG/DL (8.5-10.1); Osmolality,Calculated 289.8 MOS/KG (273-304); Potassium 4.8 MMOL/L (3.5-5.1); Total Protein 5.6 G/DL (6.4-8.3); Troponin I Only 0.017 NG/ML (0.00-0.045)
[2017-09-01] MEDS ORDERED: ACETAMINOPHEN 325 MG TABLET PO PRN ×2 (14:52→14:58)
[2017-09-01] MEDS ORDERED: ONDANSETRON 4 MG/2 ML VIAL IV PRN (14:52)
[2017-09-01] MEDS ORDERED: MAGNESIUM HYDROXIDE SUSP 30 ML UDCUP PO PRN (14:58)
[2017-09-01] MEDS ORDERED: NITROGLYCERIN SL 0.4 MG TABLET SL PRN (14:58)
[2017-09-01] MEDS ORDERED: GLUCAGON 1 MG VIAL IM PRN (14:58)
[2017-09-01] MEDS ORDERED: PIPERACILLIN/TAZOBACTAM 3,375 MG VIAL IV ONE (15:17)
[2017-09-01] MEDS ORDERED: ENOXAPARIN 40 MG/0.4 ML SYRINGE ONE (15:18)
[2017-09-01] MEDS ORDERED: SODIUM CHLORIDE 0.9% 100 ML IV ONE (15:18)
[2017-09-01] MEDS: SODIUM CHLORIDE 0.9% 1,000 ML IV SCH (15:22)
[2017-09-01] MEDS: PIPERACILLIN/TAZOBACTAM 3,375 MG in SODIUM CHLORIDE 0.9% 100 ML IV SCH ×2 (15:22→22:29)
[2017-09-01] MEDS: ENOXAPARIN 40 MG/0.4 ML SYRINGE SUBCUT SCH (15:23)
[2017-09-01 16:30] LABS: Lactic Acid 2.4 MMOL/L (0.4-2.0)
[2017-09-01] MEDS: TAMSULOSIN 0.4 MG CAPSULE PO SCH (17:33)
[2017-09-01] MEDS: INSULIN REGULAR 100 UNIT/ML SUBCUT SCH ×2 (17:33→20:29)
[2017-09-01] MEDS: ATORVASTATIN 80 MG TABLET PO SCH (20:25)
[2017-09-01] MEDS: DONEPEZIL 10 MG TABLET PO SCH (20:25)
[2017-09-01] MEDS: DOCUSATE SODIUM 100 MG CAPSULE PO SCH (20:26)
[2017-09-01] MEDS: INSULIN GLARGINE 100 UNIT/ML SUBCUT SCH (20:29)
[2017-09-02 05:10] LABS: Basophils # 0.1 10*3/uL (0.0-0.2); Basophils % 0.4 % (0.0-0.8); Eosinophils # 0.1 10*3/uL (0.0-0.87); Eosinophils % 0.3 % (0.00-10.9); Hematocrit 27.4 VOL% (42.0-52.0); Immature Granulocytes Absolute 0.24 #; Lymphocytes # 1.8 10*3/uL (1.4-4.0); Lymphocytes % 7.4 % (21.2-54.2); Mean Corpuscular HGB Conc 32.8 GM/DL (32-36); Mean Corpuscular Hemoglobin 31 PG (27-34); Mean Corpuscular Volume 94.2 FL (87-102); Monocytes # 1.2 10*3/uL (0.11-0.8); Monocytes % 4.9 % (1.7-12.7); Neutrophils # 21.1 10*3/uL (1.4-7.4); Platelet Count 308 T/CUMM (130-400); Red Blood Count 2.91 MC/CUMM (3.8-5.5); Red Cell Distribution Width 14.1 % (9.3-17.3); White Blood Count 24.5 T/CUMM (4-12)
[2017-09-02 05:31] LABS: Giant Platelets Few; Hypochromasia 1+; Lymphocytes 4 % (20-55); Microcytosis 1+; Ovalocytes Slight; Platelet Estimate Adequate; Segmented Neutrophils 90 % (50-85); Total Cells Counted 100
[2017-09-02 05:39] LABS: Calcium 8.1 MG/DL (8.5-10.1); Osmolality,Calculated 286.5 MOS/KG (273-304); Potassium 3.8 MMOL/L (3.5-5.1)
[2017-09-02] MEDS: SODIUM CHLORIDE 0.9% 1,000 ML IV SCH ×2 (05:44→17:42)
[2017-09-02 05:58] LABS: Albumin 1.7 G/DL (3.4-5.0); Bilirubin,Direct 0.45 MG/DL (0.0-0.20); Bilirubin,Indirect 0.3 MG/DL (0.0-1.0); Bilirubin,Total 0.7 MG/DL (0.2-1.0); Total Protein 5.5 G/DL (6.4-8.3)
[2017-09-02] MEDS: PIPERACILLIN/TAZOBACTAM 3,375 MG in SODIUM CHLORIDE 0.9% 100 ML IV SCH ×2 (06:23→17:41)
[2017-09-02] MEDS ORDERED: PANTOPRAZOLE 40 MG TABLET PO SCH (09:00)
[2017-09-02] MEDS ORDERED: DOCUSATE SODIUM 100 MG CAPSULE PO SCH (09:00)
[2017-09-02] MEDS: CLOPIDOGREL 75 MG TABLET PO SCH (09:03)
[2017-09-02] MEDS: ASPIRIN EC 81 MG TABLET PO SCH (09:03)
[2017-09-02] MEDS: MULTIVITAMIN (CENTRUM) TABLET PO SCH (09:03)
[2017-09-02] MEDS: ENOXAPARIN 40 MG/0.4 ML SYRINGE SUBCUT SCH (09:03)
[2017-09-02] MEDS: PANTOPRAZOLE 40 MG TABLET PO SCH (09:03)
[2017-09-02] MEDS: FINASTERIDE 5 MG TABLET PO SCH (09:03)
[2017-09-02] MEDS: ALLOPURINOL 300 MG TABLET PO SCH (09:03)
[2017-09-02] MEDS: ISOSORBIDE MONONITRATE 30 MG TABLET PO SCH (09:03)
[2017-09-02] MEDS: FLUDROCORTISONE 0.1 MG TABLET PO SCH (09:04)
[2017-09-02] MEDS: TAMSULOSIN 0.4 MG CAPSULE PO SCH ×2 (09:04→17:41)
[2017-09-02] MEDS: INSULIN REGULAR 100 UNIT/ML SUBCUT SCH ×4 (09:04→20:57)
[2017-09-02] MEDS: PIOGLITAZONE 15 MG TABLET PO SCH (09:04)
[2017-09-02] MEDS: FLUoxetine 20 MG CAPSULE PO SCH (09:04)
[2017-09-02] MEDS: DOCUSATE SODIUM 100 MG CAPSULE PO SCH ×2 (09:04→20:34)
[2017-09-02] MEDS: METOPROLOL TARTRATE 25 MG TABLET PO SCH (09:04)
[2017-09-02] MEDS: DONEPEZIL 10 MG TABLET PO SCH (20:34)
[2017-09-02] MEDS: ATORVASTATIN 80 MG TABLET PO SCH (20:34)
[2017-09-02] MEDS: INSULIN GLARGINE 100 UNIT/ML SUBCUT SCH (20:56)
[2017-09-03] MEDS: PIPERACILLIN/TAZOBACTAM 3,375 MG in SODIUM CHLORIDE 0.9% 100 ML IV SCH ×3 (00:53→16:19)
[2017-09-03 04:59] LABS: Basophils # 0.1 10*3/uL (0.0-0.2); Basophils % 0.5 % (0.0-0.8); Eosinophils # 0.2 10*3/uL (0.0-0.87); Eosinophils % 1.1 % (0.00-10.9); Immature Granulocytes % 0.7 %; Lymphocytes # 2.6 10*3/uL (1.4-4.0); Lymphocytes % 17.9 % (21.2-54.2); Mean Corpuscular HGB Conc 32.1 GM/DL (32-36); Mean Corpuscular Hemoglobin 30 PG (27-34); Mean Corpuscular Volume 92.4 FL (87-102); Mean Platelet Volume 10.3 FL (9.6-12.0); Monocytes # 1.2 10*3/uL (0.11-0.8); Neutrophils # 10.4 10*3/uL (1.4-7.4); Neutrophils % 71.8 % (38.7-73.9); Platelet Count 294 T/CUMM (130-400); Red Blood Count 3.03 MC/CUMM (3.8-5.5); Red Cell Distribution Width 14.1 % (9.3-17.3); White Blood Count 14.5 T/CUMM (4-12)
[2017-09-03] MEDS: SODIUM CHLORIDE 0.9% 1,000 ML IV SCH (06:03)
[2017-09-03] MEDS: FINASTERIDE 5 MG TABLET PO SCH (08:23)
[2017-09-03] MEDS: ASPIRIN EC 81 MG TABLET PO SCH (08:23)
[2017-09-03] MEDS: PIOGLITAZONE 15 MG TABLET PO SCH (08:23)
[2017-09-03] MEDS: DOCUSATE SODIUM 100 MG CAPSULE PO SCH ×2 (08:24→20:39)
[2017-09-03] MEDS: FLUoxetine 20 MG CAPSULE PO SCH (08:24)
[2017-09-03] MEDS: PANTOPRAZOLE 40 MG TABLET PO SCH (08:24)
[2017-09-03] MEDS: MULTIVITAMIN (CENTRUM) TABLET PO SCH (08:24)
[2017-09-03] MEDS: FLUDROCORTISONE 0.1 MG TABLET PO SCH (08:25)
[2017-09-03] MEDS: TAMSULOSIN 0.4 MG CAPSULE PO SCH ×2 (08:25→16:19)
[2017-09-03] MEDS: ALLOPURINOL 300 MG TABLET PO SCH (08:25)
[2017-09-03] MEDS: ISOSORBIDE MONONITRATE 30 MG TABLET PO SCH (08:25)
[2017-09-03] MEDS: CLOPIDOGREL 75 MG TABLET PO SCH (08:25)
[2017-09-03] MEDS: ENOXAPARIN 40 MG/0.4 ML SYRINGE SUBCUT SCH (08:27)
[2017-09-03] MEDS: INSULIN REGULAR 100 UNIT/ML SUBCUT SCH ×4 (08:27→20:39)
[2017-09-03] MEDS: METOPROLOL TARTRATE 25 MG TABLET PO SCH (08:28)
[2017-09-03] MEDS: INSULIN GLARGINE 100 UNIT/ML SUBCUT SCH (20:38)
[2017-09-03] MEDS: DONEPEZIL 10 MG TABLET PO SCH (20:39)
[2017-09-03] MEDS: ATORVASTATIN 80 MG TABLET PO SCH (20:39)
[2017-09-04] MEDS: PIPERACILLIN/TAZOBACTAM 3,375 MG in SODIUM CHLORIDE 0.9% 100 ML IV SCH ×3 (01:08→16:47)
[2017-09-04] MEDS: SODIUM CHLORIDE 0.9% 1,000 ML IV SCH (01:11)
[2017-09-04 05:48] LABS: Basophils # 0.1 10*3/uL (0.0-0.2); Basophils % 0.5 % (0.0-0.8); Eosinophils # 0.1 10*3/uL (0.0-0.87); Eosinophils % 0.5 % (0.00-10.9); Hematocrit 28.9 VOL% (42.0-52.0); Hemoglobin 9.8 GM/DL (14.0-18.0); Immature Granulocytes % 0.5 %; Immature Granulocytes Absolute 0.07 #; Lymphocytes # 3.1 10*3/uL (1.4-4.0); Lymphocytes % 21.5 % (21.2-54.2); Mean Corpuscular HGB Conc 33.9 GM/DL (32-36); Mean Corpuscular Hemoglobin 31 PG (27-34); Mean Corpuscular Volume 90.3 FL (87-102); Mean Platelet Volume 10.4 FL (9.6-12.0); Monocytes % 6.6 % (1.7-12.7); Neutrophils # 10.3 10*3/uL (1.4-7.4); Neutrophils % 70.4 % (38.7-73.9); Platelet Count 299 T/CUMM (130-400); Red Cell Distribution Width 13.9 % (9.3-17.3); White Blood Count 14.6 T/CUMM (4-12)
[2017-09-04] MEDS: MULTIVITAMIN (CENTRUM) TABLET PO SCH (08:39)
[2017-09-04] MEDS: METOPROLOL TARTRATE 25 MG TABLET PO SCH (08:39)
[2017-09-04] MEDS: FINASTERIDE 5 MG TABLET PO SCH (08:39)
[2017-09-04] MEDS: ISOSORBIDE MONONITRATE 30 MG TABLET PO SCH (08:39)
[2017-09-04] MEDS: PIOGLITAZONE 15 MG TABLET PO SCH (08:39)
[2017-09-04] MEDS: PANTOPRAZOLE 40 MG TABLET PO SCH (08:40)
[2017-09-04] MEDS: FLUoxetine 20 MG CAPSULE PO SCH (08:40)
[2017-09-04] MEDS: TAMSULOSIN 0.4 MG CAPSULE PO SCH ×2 (08:40→16:47)
[2017-09-04] MEDS: ALLOPURINOL 300 MG TABLET PO SCH (08:40)
[2017-09-04] MEDS: CLOPIDOGREL 75 MG TABLET PO SCH (08:40)
[2017-09-04] MEDS: FLUDROCORTISONE 0.1 MG TABLET PO SCH (08:40)
[2017-09-04] MEDS: DOCUSATE SODIUM 100 MG CAPSULE PO SCH ×2 (08:40→22:47)
[2017-09-04] MEDS: ASPIRIN EC 81 MG TABLET PO SCH (08:40)
[2017-09-04] MEDS: ENOXAPARIN 40 MG/0.4 ML SYRINGE SUBCUT SCH (08:41)
[2017-09-04] MEDS: INSULIN REGULAR 100 UNIT/ML SUBCUT SCH ×4 (08:41→22:46)
[2017-09-04] MEDS: INSULIN GLARGINE 100 UNIT/ML SUBCUT SCH (22:45)
[2017-09-04] MEDS: DONEPEZIL 10 MG TABLET PO SCH (22:46)
[2017-09-04] MEDS: ATORVASTATIN 80 MG TABLET PO SCH (22:47)
[2017-09-05] MEDS: PIPERACILLIN/TAZOBACTAM 3,375 MG in SODIUM CHLORIDE 0.9% 100 ML IV SCH ×3 (01:11→16:40)
[2017-09-05] MEDS: FLUoxetine 20 MG CAPSULE PO SCH (08:33)
[2017-09-05] MEDS: ISOSORBIDE MONONITRATE 30 MG TABLET PO SCH (08:33)
[2017-09-05] MEDS: FLUDROCORTISONE 0.1 MG TABLET PO SCH (08:34)
[2017-09-05] MEDS: PANTOPRAZOLE 40 MG TABLET PO SCH (08:34)
[2017-09-05] MEDS: CLOPIDOGREL 75 MG TABLET PO SCH (08:34)
[2017-09-05] MEDS: FINASTERIDE 5 MG TABLET PO SCH (08:34)
[2017-09-05] MEDS: PIOGLITAZONE 15 MG TABLET PO SCH (08:34)
[2017-09-05] MEDS: METOPROLOL TARTRATE 25 MG TABLET PO SCH (08:34)
[2017-09-05] MEDS: TAMSULOSIN 0.4 MG CAPSULE PO SCH ×2 (08:34→16:40)
[2017-09-05] MEDS: MULTIVITAMIN (CENTRUM) TABLET PO SCH (08:34)
[2017-09-05] MEDS: ALLOPURINOL 300 MG TABLET PO SCH (08:34)
[2017-09-05] MEDS: ENOXAPARIN 40 MG/0.4 ML SYRINGE SUBCUT SCH (08:35)
[2017-09-05] MEDS: DOCUSATE SODIUM 100 MG CAPSULE PO SCH ×2 (08:35→21:39)
[2017-09-05] MEDS: ASPIRIN EC 81 MG TABLET PO SCH (08:35)
[2017-09-05] MEDS: INSULIN REGULAR 100 UNIT/ML SUBCUT SCH ×4 (08:41→21:48)
[2017-09-05] MEDS: SODIUM CHLORIDE 0.9% 1,000 ML IV SCH (08:45)
[2017-09-05] MEDS: ATORVASTATIN 80 MG TABLET PO SCH (21:39)
[2017-09-05] MEDS: DONEPEZIL 10 MG TABLET PO SCH (21:39)
[2017-09-05] MEDS: INSULIN GLARGINE 100 UNIT/ML SUBCUT SCH (21:47)
[2017-09-06] MEDS: PIPERACILLIN/TAZOBACTAM 3,375 MG in SODIUM CHLORIDE 0.9% 100 ML IV SCH ×2 (01:55→09:43)
[2017-09-06 07:42] VITALS: BP 158/78
[2017-09-06] MEDS: ENOXAPARIN 40 MG/0.4 ML SYRINGE SUBCUT SCH (09:43)
[2017-09-06] MEDS: FLUDROCORTISONE 0.1 MG TABLET PO SCH (09:44)
[2017-09-06] MEDS: PIOGLITAZONE 15 MG TABLET PO SCH (09:45)
[2017-09-06] MEDS: FINASTERIDE 5 MG TABLET PO SCH (09:45)
[2017-09-06] MEDS: ISOSORBIDE MONONITRATE 30 MG TABLET PO SCH (09:45)
[2017-09-06] MEDS: MULTIVITAMIN (CENTRUM) TABLET PO SCH (09:45)
[2017-09-06] MEDS: CLOPIDOGREL 75 MG TABLET PO SCH (09:45)
[2017-09-06] MEDS: ASPIRIN EC 81 MG TABLET PO SCH (09:45)
[2017-09-06] MEDS: ALLOPURINOL 300 MG TABLET PO SCH (09:45)
[2017-09-06] MEDS: FLUoxetine 20 MG CAPSULE PO SCH (09:45)
[2017-09-06] MEDS: DOCUSATE SODIUM 100 MG CAPSULE PO SCH (09:46)
[2017-09-06] MEDS: TAMSULOSIN 0.4 MG CAPSULE PO SCH (09:46)
[2017-09-06] MEDS: METOPROLOL TARTRATE 25 MG TABLET PO SCH (09:46)
[2017-09-06] MEDS: INSULIN REGULAR 100 UNIT/ML SUBCUT SCH (10:59)
[2017-09-06] MEDS: PANTOPRAZOLE 40 MG TABLET PO SCH (11:00)
== END 2017-09-06 10:45 | DRG 868 ==
LOC: EDBD → EDUNIT# → N.ED 11:59 → N.EDINP 16:05 → N.2E 16:21
PROVIDERS: ADMIT Family Medicine; ATTEND Family Medicine

== ENCOUNTER 2017-10-27 10:26 | Inpatient (IN) ==
[2017-10-27] MEDS ORDERED: MORPHINE 4 MG/1 ML VIAL IV PRN (15:20)
[2017-10-27 15:27] LABS: Basophils % 0.2 % (0.0-0.8); Eosinophils # 0.1 10*3/uL (0.0-0.87); Eosinophils % 0.3 % (0.00-10.9); Hematocrit 31.3 VOL% (42.0-52.0); Hemoglobin 9.9 GM/DL (14.0-18.0); Immature Granulocytes % 0.8 %; Immature Granulocytes Absolute 0.17 #; Lymphocytes # 2.6 10*3/uL (1.4-4.0); Lymphocytes % 11.8 % (21.2-54.2); Mean Corpuscular HGB Conc 31.6 GM/DL (32-36); Mean Corpuscular Hemoglobin 27 PG (27-34); Mean Corpuscular Volume 85.1 FL (87-102); Mean Platelet Volume 10.5 FL (9.6-12.0); Monocytes # 1.5 10*3/uL (0.11-0.8); Monocytes % 6.7 % (1.7-12.7); Neutrophils # 17.6 10*3/uL (1.4-7.4); Neutrophils % 80.2 % (38.7-73.9); Platelet Count 410 T/CUMM (130-400); Red Blood Count 3.68 MC/CUMM (3.8-5.5); Red Cell Distribution Width 15.5 % (9.3-17.3); White Blood Count 21.9 T/CUMM (4-12)
[2017-10-27 15:53] LABS: Calcium 8.9 MG/DL (8.5-10.1); Osmolality,Calculated 283.8 MOS/KG (273-304); Potassium 3.9 MMOL/L (3.5-5.1)
[2017-10-27 16:01] LABS: Eosinophils 1 % (0-10); Lymphocytes 7 % (20-55); Segmented Neutrophils 87 % (50-85); Total Cells Counted 100
[2017-10-27 16:04] LABS: Platelet Estimate Normal
[2017-10-27] MEDS: PIPERACILLIN/TAZOBACTAM 3,375 MG in SODIUM CHLORIDE 0.9% 100 ML IV SCH (16:52)
[2017-10-27] MEDS: DONEPEZIL 10 MG TABLET PO SCH (21:37)
[2017-10-27] MEDS: ATORVASTATIN 80 MG TABLET PO SCH (21:37)
[2017-10-27] MEDS: VANCOMYCIN INJ 1,250 MG in SODIUM CHLORIDE 0.9% 250 ML IV SCH (21:38)
[2017-10-27] MEDS: INSULIN LISPRO 100 UNIT/ML SUBCUT SCH (22:03)
[2017-10-28] MEDS: PIPERACILLIN/TAZOBACTAM 3,375 MG in SODIUM CHLORIDE 0.9% 100 ML IV SCH ×3 (00:20→16:56)
[2017-10-28 05:56] LABS: Basophils # 0.1 10*3/uL (0.0-0.2); Basophils % 0.3 % (0.0-0.8); Eosinophils # 0.1 10*3/uL (0.0-0.87); Eosinophils % 0.6 % (0.00-10.9); Hematocrit 29.8 VOL% (42.0-52.0); Hemoglobin 9.4 GM/DL (14.0-18.0); Immature Granulocytes % 0.7 %; Immature Granulocytes Absolute 0.14 #; Lymphocytes # 3.2 10*3/uL (1.4-4.0); Lymphocytes % 17.1 % (21.2-54.2); Mean Corpuscular HGB Conc 31.5 GM/DL (32-36); Mean Corpuscular Hemoglobin 27 PG (27-34); Mean Corpuscular Volume 84.7 FL (87-102); Mean Platelet Volume 10.7 FL (9.6-12.0); Monocytes # 1.3 10*3/uL (0.11-0.8); Monocytes % 7.1 % (1.7-12.7); Neutrophils # 13.9 10*3/uL (1.4-7.4); Neutrophils % 74.2 % (38.7-73.9); Platelet Count 375 T/CUMM (130-400); Red Blood Count 3.52 MC/CUMM (3.8-5.5); Red Cell Distribution Width 15.4 % (9.3-17.3); White Blood Count 18.7 T/CUMM (4-12)
[2017-10-28 06:13] LABS: Alanine Aminotransferase 97 U/L (16-61); Albumin 1.6 G/DL (3.4-5.0); Alkaline Phosphatase 218 U/L (45-117); Aspartate Amino Transferase 67 U/L (0-37); Blood Urea Nitrogen 22 MG/DL (7-18); Calcium 8.7 MG/DL (8.5-10.1); Cholesterol < 50 MG/DL (50-200); Glucose 77 MG/DL (74-106); HDL Cholesterol 27 MG/DL (40-60); Osmolality,Calculated 280.4 MOS/KG (273-304); Potassium 3.4 MMOL/L (3.5-5.1); Risk Ratio 1.85; Sodium 140 MMOL/L (136-145); Total Protein 6.7 G/DL (6.4-8.3); Triglycerides 52 MG/DL (2-150); VLDL CHOLESTEROL 10.4 MG/DL
[2017-10-28] MEDS: INSULIN LISPRO 100 UNIT/ML SUBCUT SCH ×4 (07:26→21:26)
[2017-10-28] MEDS: TAMSULOSIN 0.4 MG CAPSULE PO SCH ×2 (08:30→16:45)
[2017-10-28] MEDS: ASPIRIN EC 81 MG TABLET PO SCH (08:38)
[2017-10-28] MEDS: METOPROLOL TARTRATE 25 MG TABLET PO SCH (10:26)
[2017-10-28] MEDS ORDERED: PHENYLEPHRINE 1 MG/10 ML SYRINGE IV ONE (12:43)
[2017-10-28] MEDS ORDERED: SEVOFLURANE 1 UNIT/15 MINUTE INH ONE (12:43)
[2017-10-28] MEDS ORDERED: ePHEDrine 50 MG/ML AMP ONE (12:43)
[2017-10-28] MEDS ORDERED: fentaNYL 100 MCG/2 ML VIAL ONE (12:43)
[2017-10-28] MEDS ORDERED: PROPOFOL 200 MG/20 ML VIAL IV ONE (12:43)
[2017-10-28] MEDS: MULTIVITAMIN (CENTRUM) TABLET PO SCH (13:51)
[2017-10-28] MEDS: FLUDROCORTISONE 0.1 MG TABLET PO SCH (13:51)
[2017-10-28] MEDS: ISOSORBIDE MONONITRATE 30 MG TABLET PO SCH (13:51)
[2017-10-28] MEDS: FLUoxetine 20 MG CAPSULE PO SCH (13:51)
[2017-10-28] MEDS: ALLOPURINOL 300 MG TABLET PO SCH (13:51)
[2017-10-28] MEDS: VANCOMYCIN INJ 1,250 MG in SODIUM CHLORIDE 0.9% 250 ML IV SCH ×2 (13:52→21:29)
[2017-10-28] MEDS: FINASTERIDE 5 MG TABLET PO SCH (13:52)
[2017-10-28] MEDS ORDERED: GLUCAGON 1 MG VIAL IM PRN (16:34)
[2017-10-28] MEDS ORDERED: DEXTROSE 50% 25 GM/50 ML VIAL IV PRN (16:34)
[2017-10-28] MEDS: DONEPEZIL 10 MG TABLET PO SCH (21:24)
[2017-10-28] MEDS: POTASSIUM CHLORIDE 20 MEQ TABLET PO SCH (21:25)
[2017-10-28] MEDS: ATORVASTATIN 80 MG TABLET PO SCH (21:25)
[2017-10-29] MEDS: PIPERACILLIN/TAZOBACTAM 3,375 MG in SODIUM CHLORIDE 0.9% 100 ML IV SCH ×3 (00:10→17:07)
[2017-10-29 05:35] LABS: Basophils # 0.1 10*3/uL (0.0-0.2); Basophils % 0.5 % (0.0-0.8); Eosinophils # 0.2 10*3/uL (0.0-0.87); Eosinophils % 1.6 % (0.00-10.9); Hematocrit 26.1 VOL% (42.0-52.0); Hemoglobin 8.5 GM/DL (14.0-18.0); Immature Granulocytes % 0.4 %; Immature Granulocytes Absolute 0.04 #; Lymphocytes # 2.4 10*3/uL (1.4-4.0); Lymphocytes % 22.7 % (21.2-54.2); Mean Corpuscular HGB Conc 32.6 GM/DL (32-36); Mean Corpuscular Hemoglobin 27 PG (27-34); Mean Corpuscular Volume 82.6 FL (87-102); Mean Platelet Volume 10.8 FL (9.6-12.0); Monocytes # 0.8 10*3/uL (0.11-0.8); Monocytes % 7.7 % (1.7-12.7); Neutrophils % 67.1 % (38.7-73.9); Platelet Count 349 T/CUMM (130-400); Red Blood Count 3.16 MC/CUMM (3.8-5.5); Red Cell Distribution Width 15.5 % (9.3-17.3); White Blood Count 10.5 T/CUMM (4-12)
[2017-10-29 06:19] LABS: Albumin 1.5 G/DL (3.4-5.0); Bilirubin,Total 0.9 MG/DL (0.2-1.0); Calcium 8.2 MG/DL (8.5-10.1); Osmolality,Calculated 279.4 MOS/KG (273-304); Potassium 3.7 MMOL/L (3.5-5.1); Total Protein 5.9 G/DL (6.4-8.3)
[2017-10-29] MEDS: INSULIN LISPRO 100 UNIT/ML SUBCUT SCH ×4 (08:53→21:56)
[2017-10-29] MEDS: TAMSULOSIN 0.4 MG CAPSULE PO SCH ×2 (09:51→17:06)
[2017-10-29] MEDS: ASPIRIN EC 81 MG TABLET PO SCH (09:51)
[2017-10-29] MEDS: METOPROLOL TARTRATE 25 MG TABLET PO SCH (09:51)
[2017-10-29] MEDS: FLUoxetine 20 MG CAPSULE PO SCH (09:51)
[2017-10-29] MEDS: FINASTERIDE 5 MG TABLET PO SCH (09:51)
[2017-10-29] MEDS: MULTIVITAMIN (CENTRUM) TABLET PO SCH (09:51)
[2017-10-29] MEDS: ALLOPURINOL 300 MG TABLET PO SCH (09:51)
[2017-10-29] MEDS: ISOSORBIDE MONONITRATE 30 MG TABLET PO SCH (09:51)
[2017-10-29] MEDS: FLUDROCORTISONE 0.1 MG TABLET PO SCH (09:52)
[2017-10-29] MEDS: POTASSIUM CHLORIDE 20 MEQ TABLET PO SCH ×2 (09:52→21:54)
[2017-10-29] MEDS: VANCOMYCIN INJ 1,250 MG in SODIUM CHLORIDE 0.9% 250 ML IV SCH ×2 (10:47→21:52)
[2017-10-29] MEDS: DONEPEZIL 10 MG TABLET PO SCH (21:54)
[2017-10-29] MEDS: ATORVASTATIN 80 MG TABLET PO SCH (21:54)
[2017-10-30] MEDS: PIPERACILLIN/TAZOBACTAM 3,375 MG in SODIUM CHLORIDE 0.9% 100 ML IV SCH ×3 (00:02→16:16)
[2017-10-30 05:31] LABS: Basophils % 0.4 % (0.0-0.8); Eosinophils # 0.2 10*3/uL (0.0-0.87); Eosinophils % 2.1 % (0.00-10.9); Hematocrit 28.1 VOL% (42.0-52.0); Hemoglobin 8.5 GM/DL (14.0-18.0); Immature Granulocytes % 0.4 %; Immature Granulocytes Absolute 0.04 #; Lymphocytes % 29.8 % (21.2-54.2); Mean Corpuscular HGB Conc 30.2 GM/DL (32-36); Mean Corpuscular Hemoglobin 26 PG (27-34); Mean Corpuscular Volume 86.7 FL (87-102); Mean Platelet Volume 10.5 FL (9.6-12.0); Monocytes # 0.9 10*3/uL (0.11-0.8); Monocytes % 8.6 % (1.7-12.7); Neutrophils % 58.7 % (38.7-73.9); Platelet Count 347 T/CUMM (130-400); Red Blood Count 3.24 MC/CUMM (3.8-5.5); Red Cell Distribution Width 15.3 % (9.3-17.3); White Blood Count 10.2 T/CUMM (4-12)
[2017-10-30 05:47] LABS: Calcium 8.6 MG/DL (8.5-10.1); Osmolality,Calculated 282.1 MOS/KG (273-304); Potassium 4.2 MMOL/L (3.5-5.1)
[2017-10-30] MEDS: INSULIN LISPRO 100 UNIT/ML SUBCUT SCH ×4 (08:25→20:50)
[2017-10-30] MEDS: ALLOPURINOL 300 MG TABLET PO SCH (09:58)
[2017-10-30] MEDS: MULTIVITAMIN (CENTRUM) TABLET PO SCH (09:58)
[2017-10-30] MEDS: FLUDROCORTISONE 0.1 MG TABLET PO SCH (09:58)
[2017-10-30] MEDS: FLUoxetine 20 MG CAPSULE PO SCH (09:58)
[2017-10-30] MEDS: FINASTERIDE 5 MG TABLET PO SCH (09:59)
[2017-10-30] MEDS: ISOSORBIDE MONONITRATE 30 MG TABLET PO SCH (09:59)
[2017-10-30] MEDS: TAMSULOSIN 0.4 MG CAPSULE PO SCH ×2 (09:59→16:16)
[2017-10-30] MEDS: ASPIRIN EC 81 MG TABLET PO SCH (09:59)
[2017-10-30] MEDS: POTASSIUM CHLORIDE 20 MEQ TABLET PO SCH ×2 (09:59→20:50)
[2017-10-30] MEDS: METOPROLOL TARTRATE 25 MG TABLET PO SCH ×2 (09:59→20:50)
[2017-10-30] MEDS: VANCOMYCIN INJ 1,250 MG in SODIUM CHLORIDE 0.9% 250 ML IV SCH ×2 (10:00→20:49)
[2017-10-30] MEDS: DONEPEZIL 10 MG TABLET PO SCH (20:50)
[2017-10-30] MEDS: ATORVASTATIN 80 MG TABLET PO SCH (20:50)
[2017-10-31] MEDS: PIPERACILLIN/TAZOBACTAM 3,375 MG in SODIUM CHLORIDE 0.9% 100 ML IV SCH ×3 (00:49→17:21)
[2017-10-31] MEDS: ASPIRIN EC 81 MG TABLET PO SCH (09:20)
[2017-10-31] MEDS: INSULIN LISPRO 100 UNIT/ML SUBCUT SCH ×4 (09:20→21:46)
[2017-10-31] MEDS: FINASTERIDE 5 MG TABLET PO SCH (09:20)
[2017-10-31] MEDS: FLUDROCORTISONE 0.1 MG TABLET PO SCH (09:20)
[2017-10-31] MEDS: TAMSULOSIN 0.4 MG CAPSULE PO SCH ×2 (09:20→17:25)
[2017-10-31] MEDS: POTASSIUM CHLORIDE 20 MEQ TABLET PO SCH ×2 (09:21→21:46)
[2017-10-31] MEDS: ISOSORBIDE MONONITRATE 30 MG TABLET PO SCH (09:21)
[2017-10-31] MEDS: MULTIVITAMIN (CENTRUM) TABLET PO SCH (09:21)
[2017-10-31] MEDS: ALLOPURINOL 300 MG TABLET PO SCH (09:21)
[2017-10-31] MEDS: METOPROLOL TARTRATE 25 MG TABLET PO SCH ×2 (09:21→21:46)
[2017-10-31] MEDS: FLUoxetine 20 MG CAPSULE PO SCH (09:21)
[2017-10-31] MEDS: VANCOMYCIN INJ 1,250 MG in SODIUM CHLORIDE 0.9% 250 ML IV SCH ×2 (09:22→21:47)
[2017-10-31] MEDS: DONEPEZIL 10 MG TABLET PO SCH (21:46)
[2017-10-31] MEDS: ATORVASTATIN 80 MG TABLET PO SCH (21:46)
[2017-11-01] MEDS: PIPERACILLIN/TAZOBACTAM 3,375 MG in SODIUM CHLORIDE 0.9% 100 ML IV SCH ×3 (01:43→15:00)
[2017-11-01] MEDS: INSULIN LISPRO 100 UNIT/ML SUBCUT SCH ×4 (08:18→21:18)
[2017-11-01] MEDS: MULTIVITAMIN (CENTRUM) TABLET PO SCH (09:29)
[2017-11-01] MEDS: METOPROLOL TARTRATE 25 MG TABLET PO SCH ×2 (09:29→20:19)
[2017-11-01] MEDS: FLUoxetine 20 MG CAPSULE PO SCH (09:29)
[2017-11-01] MEDS: TAMSULOSIN 0.4 MG CAPSULE PO SCH ×2 (09:29→16:30)
[2017-11-01] MEDS: POTASSIUM CHLORIDE 20 MEQ TABLET PO SCH ×2 (09:29→20:19)
[2017-11-01] MEDS: ALLOPURINOL 300 MG TABLET PO SCH (09:31)
[2017-11-01] MEDS: FLUDROCORTISONE 0.1 MG TABLET PO SCH (09:31)
[2017-11-01] MEDS: ASPIRIN EC 81 MG TABLET PO SCH (09:31)
[2017-11-01] MEDS: ISOSORBIDE MONONITRATE 30 MG TABLET PO SCH (09:31)
[2017-11-01] MEDS: FINASTERIDE 5 MG TABLET PO SCH (09:32)
[2017-11-01] MEDS: VANCOMYCIN INJ 1,250 MG in SODIUM CHLORIDE 0.9% 250 ML IV SCH ×2 (10:23→15:01)
[2017-11-01] MEDS ORDERED: PANTOPRAZOLE 40 MG VIAL IV ONE (11:22)
[2017-11-01] MEDS ORDERED: SEVOFLURANE 1 UNIT/15 MINUTE INH ONE (13:10)
[2017-11-01] MEDS ORDERED: PROPOFOL 200 MG/20 ML VIAL IV ONE (13:10)
[2017-11-01] MEDS ORDERED: ACETAMINOPHEN 1,000 MG/100 ML VIAL IV ONE (13:11)
[2017-11-01] MEDS ORDERED: PHENYLEPHRINE 1 MG/10 ML SYRINGE IV ONE (13:11)
[2017-11-01] MEDS ORDERED: ePHEDrine 50 MG/ML AMP ONE (13:11)
[2017-11-01] MEDS ORDERED: PHENYLEPHRINE 10 MG/1 ML VIAL IV ONE (13:11)
[2017-11-01] MEDS: DONEPEZIL 10 MG TABLET PO SCH (20:19)
[2017-11-01] MEDS: ATORVASTATIN 80 MG TABLET PO SCH (20:19)
[2017-11-02] MEDS: PIPERACILLIN/TAZOBACTAM 3,375 MG in SODIUM CHLORIDE 0.9% 100 ML IV SCH ×4 (00:56→23:41)
[2017-11-02 07:26] LABS: Basophils # 0.1 10*3/uL (0.0-0.2); Basophils % 0.4 % (0.0-0.8); Eosinophils # 0.3 10*3/uL (0.0-0.87); Eosinophils % 1.7 % (0.00-10.9); Hematocrit 30.6 VOL% (42.0-52.0); Hemoglobin 9.4 GM/DL (14.0-18.0); Immature Granulocytes % 0.6 %; Immature Granulocytes Absolute 0.11 #; Lymphocytes % 15.6 % (21.2-54.2); Mean Corpuscular HGB Conc 30.7 GM/DL (32-36); Mean Corpuscular Hemoglobin 27 PG (27-34); Mean Corpuscular Volume 86.7 FL (87-102); Mean Platelet Volume 10.5 FL (9.6-12.0); Monocytes # 1.4 10*3/uL (0.11-0.8); Neutrophils # 14.5 10*3/uL (1.4-7.4); Neutrophils % 74.7 % (38.7-73.9); Platelet Count 377 T/CUMM (130-400); Red Blood Count 3.53 MC/CUMM (3.8-5.5); Red Cell Distribution Width 15.7 % (9.3-17.3); White Blood Count 19.3 T/CUMM (4-12)
[2017-11-02 07:57] LABS: Calcium 8.7 MG/DL (8.5-10.1); Osmolality,Calculated 281.4 MOS/KG (273-304); Potassium 4.5 MMOL/L (3.5-5.1)
[2017-11-02] MEDS: FLUoxetine 20 MG CAPSULE PO SCH (08:36)
[2017-11-02] MEDS: ALLOPURINOL 300 MG TABLET PO SCH (08:36)
[2017-11-02] MEDS: POTASSIUM CHLORIDE 20 MEQ TABLET PO SCH ×2 (08:37→20:02)
[2017-11-02] MEDS: FLUDROCORTISONE 0.1 MG TABLET PO SCH (08:37)
[2017-11-02] MEDS: MULTIVITAMIN (CENTRUM) TABLET PO SCH (08:37)
[2017-11-02] MEDS: ISOSORBIDE MONONITRATE 30 MG TABLET PO SCH (08:37)
[2017-11-02] MEDS: TAMSULOSIN 0.4 MG CAPSULE PO SCH ×2 (08:37→16:51)
[2017-11-02] MEDS: FINASTERIDE 5 MG TABLET PO SCH (08:38)
[2017-11-02] MEDS: ASPIRIN EC 81 MG TABLET PO SCH (08:38)
[2017-11-02] MEDS: METOPROLOL TARTRATE 25 MG TABLET PO SCH ×2 (08:38→20:02)
[2017-11-02] MEDS: INSULIN LISPRO 100 UNIT/ML SUBCUT SCH ×4 (08:38→20:51)
[2017-11-02] MEDS: VANCOMYCIN INJ 1,250 MG in SODIUM CHLORIDE 0.9% 250 ML IV SCH (08:39)
[2017-11-02] MEDS: DONEPEZIL 10 MG TABLET PO SCH (20:02)
[2017-11-02] MEDS: ATORVASTATIN 80 MG TABLET PO SCH (20:02)
[2017-11-03] MEDS: VANCOMYCIN INJ 1,250 MG in SODIUM CHLORIDE 0.9% 250 ML IV SCH (03:42)
[2017-11-03 05:48] LABS: Basophils % 0.2 % (0.0-0.8); Eosinophils # 0.2 10*3/uL (0.0-0.87); Eosinophils % 1.5 % (0.00-10.9); Hematocrit 26.1 VOL% (42.0-52.0); Hemoglobin 7.9 GM/DL (14.0-18.0); Immature Granulocytes % 0.5 %; Immature Granulocytes Absolute 0.08 #; Lymphocytes # 2.9 10*3/uL (1.4-4.0); Lymphocytes % 18.3 % (21.2-54.2); Mean Corpuscular HGB Conc 30.3 GM/DL (32-36); Mean Corpuscular Hemoglobin 26 PG (27-34); Mean Corpuscular Volume 87.3 FL (87-102); Mean Platelet Volume 10.5 FL (9.6-12.0); Monocytes # 1.3 10*3/uL (0.11-0.8); Monocytes % 8.3 % (1.7-12.7); Neutrophils # 11.4 10*3/uL (1.4-7.4); Neutrophils % 71.2 % (38.7-73.9); Platelet Count 313 T/CUMM (130-400); Red Blood Count 2.99 MC/CUMM (3.8-5.5); White Blood Count 16.1 T/CUMM (4-12)
[2017-11-03 06:07] LABS: Calcium 8.2 MG/DL (8.5-10.1); Osmolality,Calculated 279.4 MOS/KG (273-304); Potassium 3.9 MMOL/L (3.5-5.1)
[2017-11-03] MEDS: INSULIN LISPRO 100 UNIT/ML SUBCUT SCH ×3 (07:57→16:12)
[2017-11-03] MEDS: FINASTERIDE 5 MG TABLET PO SCH (08:45)
[2017-11-03] MEDS: TAMSULOSIN 0.4 MG CAPSULE PO SCH ×2 (08:45→16:12)
[2017-11-03] MEDS: ALLOPURINOL 300 MG TABLET PO SCH (08:46)
[2017-11-03] MEDS: ISOSORBIDE MONONITRATE 30 MG TABLET PO SCH (08:46)
[2017-11-03] MEDS: FLUDROCORTISONE 0.1 MG TABLET PO SCH (08:46)
[2017-11-03] MEDS: POTASSIUM CHLORIDE 20 MEQ TABLET PO SCH (08:46)
[2017-11-03] MEDS: FLUoxetine 20 MG CAPSULE PO SCH (08:46)
[2017-11-03] MEDS: MULTIVITAMIN (CENTRUM) TABLET PO SCH (08:47)
[2017-11-03] MEDS: ASPIRIN EC 81 MG TABLET PO SCH (08:47)
[2017-11-03] MEDS: METOPROLOL TARTRATE 25 MG TABLET PO SCH (08:47)
[2017-11-03] MEDS: PIPERACILLIN/TAZOBACTAM 3,375 MG in SODIUM CHLORIDE 0.9% 100 ML IV SCH ×2 (08:47→16:22)
[2017-11-03] MEDS ORDERED: TUBERCULIN SKIN TEST 0.1 ML SYRINGE INTRADERM ONE (15:30)
[2017-11-03 15:52] VITALS: BP 146/82
== END 2017-11-03 17:04 | DRG 241 ==
LOC: N.2E 13:23
PROVIDERS: ADMIT Surgery; ATTEND Surgery

== ENCOUNTER 2019-05-17 09:11 | Inpatient (IN) ==
[2019-05-17 10:14] LABS: Basophils # 0.1 10*3/uL (0.0-0.2); Basophils % 0.3 % (0.0-0.8); Eosinophils % 0.1 % (0.00-10.9); Hematocrit 25.8 VOL% (42.0-52.0); Hemoglobin 7.9 GM/DL (14.0-18.0); Immature Granulocytes % 0.5 %; Immature Granulocytes Absolute 0.08 #; Lymphocytes # 2.2 10*3/uL (1.4-4.0); Lymphocytes % 14.4 % (21.2-54.2); Mean Corpuscular HGB Conc 30.6 GM/DL (32-36); Mean Corpuscular Volume 87.2 FL (87-102); Mean Platelet Volume 10.8 FL (9.6-12.0); Monocytes % 3.9 % (1.7-12.7); Neutrophils % 80.8 % (38.7-73.9); Platelet Count 196 T/CUMM (130-400); Red Blood Count 2.96 MC/CUMM (3.8-5.5); Red Cell Distribution Width 16.7 % (9.3-17.3); White Blood Count 15.6 T/CUMM (4-12)
[2019-05-17 10:23] LABS: INR 1.1; PT Patient Result 11.5 SECS (9.6-12.2); Partial Thromboplastin Time 22.9 SECS (20.8-36.0)
[2019-05-17 10:44] LABS: Alanine Aminotransferase 17 U/L (16-61); Albumin 2.7 G/DL (3.4-5.0); Alkaline Phosphatase 82 U/L (45-117); Aspartate Amino Transferase 17 U/L (0-37); Bilirubin,Total < 0.39 MG/DL (0.2-1.0); Blood Urea Nitrogen 81 MG/DL (7-18); Calcium 8.4 MG/DL (8.5-10.1); Estimated Glom Filtration Rate 36 ML/MIN; Glucose 186 MG/DL (74-106); Osmolality,Calculated 311.1 MOS/KG (273-304); Total Protein 6.4 G/DL (6.4-8.3)
[2019-05-17] MEDS ORDERED: SODIUM CHLORIDE 0.9% 1,000 ML IV STA (10:53)
[2019-05-17] MEDS ORDERED: ONDANSETRON 4 MG/2 ML VIAL IV PRN (13:00)
[2019-05-17] MEDS ORDERED: ACETAMINOPHEN 325 MG TABLET PO PRN (13:00)
[2019-05-17] MEDS: SODIUM CHLORIDE 0.9% 1,000 ML IV SCH (13:15)
[2019-05-17] MEDS ORDERED: SODIUM CHLORIDE 0.9% 1,000 ML IV PRN ×2 (15:21→16:05)
[2019-05-17] MEDS ORDERED: FUROSEMIDE 20 MG/2 ML VIAL IV PRN (15:21)
[2019-05-17] MEDS ORDERED: DEXTROSE 10% 25 GM/250 ML BAG IV PRN (17:01)
[2019-05-17] MEDS ORDERED: GLUCAGON 1 MG VIAL IM PRN (17:01)
[2019-05-17] MEDS: TAMSULOSIN 0.4 MG CAPSULE PO SCH (20:24)
[2019-05-17] MEDS: DOCUSATE SODIUM 100 MG CAPSULE PO SCH (20:25)
[2019-05-17] MEDS: PANTOPRAZOLE 40 MG TABLET PO SCH (20:25)
[2019-05-17] MEDS: INSULIN REGULAR 100 UNIT/ML SUBCUT SCH (20:32)
[2019-05-17] MEDS ORDERED: DONEPEZIL 10 MG TABLET PO SCH (21:00)
[2019-05-17] MEDS ORDERED: SIMVASTATIN 20 MG TABLET PO SCH (21:00)
[2019-05-17] MEDS ORDERED: INSULIN GLARGINE 100 UNIT/ML SUBCUT SCH (21:00)
[2019-05-18 02:21] LABS: Hematocrit 26.7 VOL% (42.0-52.0); Hemoglobin 8.7 GM/DL (14.0-18.0)
[2019-05-18] MEDS: SODIUM CHLORIDE 0.9% 1,000 ML IV SCH ×3 (05:00→15:50)
[2019-05-18 05:12] LABS: Basophils % 0.4 % (0.0-0.8); Eosinophils # 0.2 10*3/uL (0.0-0.87); Hematocrit 27.9 VOL% (42.0-52.0); Hemoglobin 8.8 GM/DL (14.0-18.0); Immature Granulocytes % 0.4 %; Immature Granulocytes Absolute 0.04 #; Lymphocytes % 28.7 % (21.2-54.2); Mean Corpuscular HGB Conc 31.5 GM/DL (32-36); Mean Corpuscular Volume 86.6 FL (87-102); Mean Platelet Volume 11.4 FL (9.6-12.0); Monocytes % 8.2 % (1.7-12.7); Neutrophils % 60.3 % (38.7-73.9); Platelet Count 142 T/CUMM (130-400); Red Blood Count 3.22 MC/CUMM (3.8-5.5); Red Cell Distribution Width 16.5 % (9.3-17.3); White Blood Count 10.6 T/CUMM (4-12)
[2019-05-18] MEDS ORDERED: DONEPEZIL 10 MG TABLET PO SCH (06:32)
[2019-05-18] MEDS: INSULIN REGULAR 100 UNIT/ML SUBCUT SCH ×2 (07:55→12:24)
[2019-05-18] MEDS ORDERED: ISOSORBIDE MONONITRATE 30 MG TABLET PO SCH (09:00)
[2019-05-18] MEDS ORDERED: allopurinoL 300 MG TABLET PO SCH ×2 (09:00)
[2019-05-18] MEDS ORDERED: FINASTERIDE 5 MG TABLET PO SCH (09:00)
[2019-05-18] MEDS ORDERED: MAGNESIUM OXIDE 400 MG TABLET PO SCH (09:00)
[2019-05-18] MEDS ORDERED: METOPROLOL TARTRATE 25 MG TABLET PO SCH (09:00)
[2019-05-18] MEDS ORDERED: MULTIVITAMIN (CENTRUM) TABLET PO SCH (09:00)
[2019-05-18] MEDS ORDERED: FLUoxetine 20 MG CAPSULE PO SCH (09:00)
[2019-05-18] MEDS ORDERED: PANTOPRAZOLE 40 MG TABLET PO SCH (09:00)
[2019-05-18] MEDS ORDERED: propofoL 200 MG/20 ML VIAL IV ONE (09:30)
[2019-05-18] MEDS ORDERED: ETOMIDATE 20 MG/10 ML VIAL IV ONE (09:30)
[2019-05-18] MEDS ORDERED: LIDOCAINE 2% 5 ML VIAL ONE (09:30)
[2019-05-18] MEDS: TAMSULOSIN 0.4 MG CAPSULE PO SCH (10:57)
[2019-05-18] MEDS: DOCUSATE SODIUM 100 MG CAPSULE PO SCH (10:57)
[2019-05-18] MEDS: PANTOPRAZOLE 40 MG TABLET PO SCH (10:57)
[2019-05-18 12:07] VITALS: BP 106/47
[2019-05-18 15:44] LABS: Hematocrit 26.2 VOL% (42.0-52.0); Hemoglobin 8.3 GM/DL (14.0-18.0)
== END 2019-05-18 15:40 | DRG 378 ==
LOC: EDBD → EDUNIT# → N.ED 09:11 → N.EDINP 10:55 → N.2E 12:14
PROVIDERS: ADMIT Family Medicine; ATTEND Family Medicine

== ENCOUNTER 2020-03-31 23:00 | Inpatient (IN) ==
[2020-03-31] MEDS ORDERED: SODIUM CHLORIDE 0.9% 1,000 ML IV STA (23:31)
[2020-04-01 00:06] LABS: ABG HCO3 16.9 MMOL/L (20-26); ABG Oxygen Saturation 95.5 % (95-100); ABG PCO2 25.4 MM HG (35-48); ABG PH 7.441 (7.35-7.45); ABG PO2 79.1 MM HG (80-95); ABG TCO2 17.7 MMOL/L (23-27); Allen Test Positive
[2020-04-01 00:17] LABS: Basophils % 0.2 % (0.0-0.8); Hematocrit 53.8 VOL% (42.0-52.0); Hemoglobin 17.4 GM/DL (14.0-18.0); Immature Granulocytes % 0.7 %; Immature Granulocytes Absolute 0.13 #; Lymphocytes # 1.3 10*3/uL (1.4-4.0); Lymphocytes % 7.3 % (21.2-54.2); Mean Corpuscular HGB Conc 32.3 GM/DL (32-36); Mean Corpuscular Volume 93.2 FL (87-102); Mean Platelet Volume 12.2 FL (9.6-12.0); NRBC # 0.15 10*3/uL; Neutrophils % 84.8 % (38.7-73.9); Platelet Count 90 T/CUMM (130-400); Red Blood Count 5.77 MC/CUMM (3.8-5.5); White Blood Count 17.8 T/CUMM (4-12)
[2020-04-01 00:35] LABS: Alanine Aminotransferase 25 U/L (16-61); Alkaline Phosphatase 98 U/L (45-117); Aspartate Amino Transferase 47 U/L (0-37); Blood Urea Nitrogen 132 MG/DL (7-18); Calcium 10.2 MG/DL (8.5-10.1); Glucose 160 MG/DL (74-106); Osmolality,Calculated 346.7 MOS/KG (273-304); Total Protein 8.1 G/DL (6.4-8.3)
[2020-04-01 00:37] LABS: Estimated Glom Filtration Rate 0 ML/MIN
[2020-04-01 00:47] LABS: Bacteria,Urine Many /HPF (Few); Bilirubin,Urine Negative (Negative); Blood, Urine Large mg/dL (Negative); Glucose,Urine (UA) Negative (Negative); Ketones,Urine Negative (Negative); Mucus,Urine Occasional /LPF (Occasional); Nitrite,Urine Negative (Negative); Protein,Urine 100 MG/DL; RBC,Urine 251 /HPF (0-4); Squamous Epithelial Cell,Urine Occasional /HPF (0-10); Urine Appearance CLOUDY (Clear); Urine Color Amber (Yellow); Urine Specific Gravity 1.018 (1.001-1.035); Urine Urobilinogen < 2.0 EU/DL (0.2-1.0); WBC,Urine 342 /HPF (0-6)
[2020-04-01] MEDS ORDERED: PIPERACILLIN/TAZOBACTAM 3,375 MG in SODIUM CHLORIDE 0.9% 100 ML IV STA (01:07)
[2020-04-01 01:17] LABS: Lymphocytes 6 % (20-55); Platelet Estimate Decreased; Polychromasia Slight; Segmented Neutrophils 87 % (50-85); Total Cells Counted 100
[2020-04-01] MEDS ORDERED: PIPERACILLIN/TAZOBACTAM 3,375 MG VIAL IV ONE (01:20)
[2020-04-01] MEDS ORDERED: DEXTROSE 50% 25 GM/50 ML VIAL IV PRN (02:48)
[2020-04-01] MEDS ORDERED: GLUCAGON 1 MG VIAL IM PRN (02:48)
[2020-04-01] MEDS ORDERED: ACETAMINOPHEN 325 MG TABLET PO PRN (02:48)
[2020-04-01] MEDS ORDERED: ONDANSETRON 4 MG/2 ML VIAL IV PRN (02:48)
[2020-04-01] MEDS ORDERED: SODIUM CHLORIDE 0.9% 1,000 ML IV SCH (03:00)
[2020-04-01 03:11] LABS: Basophils % 0.2 % (0.0-0.8); Hematocrit 48.3 VOL% (42.0-52.0); Hemoglobin 15.4 GM/DL (14.0-18.0); Immature Granulocytes % 1.1 %; Immature Granulocytes Absolute 0.19 #; Lymphocytes # 1.1 10*3/uL (1.4-4.0); Lymphocytes % 6.1 % (21.2-54.2); Mean Corpuscular HGB Conc 31.9 GM/DL (32-36); Mean Corpuscular Volume 95.1 FL (87-102); Mean Platelet Volume 12.3 FL (9.6-12.0); NRBC # 0.19 10*3/uL; Neutrophils % 85.6 % (38.7-73.9); Platelet Count 68 T/CUMM (130-400); Red Blood Count 5.08 MC/CUMM (3.8-5.5); Red Cell Distribution Width 15.6 % (9.3-17.3); White Blood Count 17.9 T/CUMM (4-12)
[2020-04-01 05:51] LABS: INR 1.8; PT Patient Result 18.7 SECS (9.8-11.9)
[2020-04-01] MEDS: SODIUM CHLORIDE 0.45% 1,000 ML IV SCH ×3 (06:22→20:50)
[2020-04-01 07:00] LABS: Albumin 2.3 G/DL (3.4-5.0); Bilirubin,Total 0.9 MG/DL (0.2-1.0); Calcium 9.5 MG/DL (8.5-10.1); Osmolality,Calculated 344.9 MOS/KG (273-304); Total Protein 7.3 G/DL (6.4-8.3)
[2020-04-01] MEDS: INSULIN REGULAR 100 UNIT/ML SUBCUT SCH ×4 (08:49→20:40)
[2020-04-01] MEDS: HEPARIN DRIP 25,000 UNITS/500 ML PREMIX IV SCH (10:15)
[2020-04-01] MEDS: methylPREDNISolone SOD SUC 40 MG/1 ML VIAL IM SCH ×2 (12:15→12:35)
[2020-04-01] MEDS: MENTHOL/ZINC OXIDE OINT 71 GM JAR TOP SCH ×2 (12:15→20:40)
[2020-04-01] MEDS: methylPREDNISolone SOD SUC 40 MG/1 ML VIAL IV SCH ×2 (12:15→20:40)
[2020-04-01] MEDS: PIPERACILLIN/TAZOBACTAM 3,375 MG in SODIUM CHLORIDE 0.9% 100 ML IV SCH (12:18)
[2020-04-01] MEDS ORDERED: VANCOMYCIN INJ 2,250 MG in SODIUM CHLORIDE 0.9% 500 ML IV ONE (17:00)
[2020-04-01 19:58] LABS: Hematocrit 43.8 VOL% (42.0-52.0)
[2020-04-02] MEDS: PIPERACILLIN/TAZOBACTAM 3,375 MG in SODIUM CHLORIDE 0.9% 100 ML IV SCH ×2 (01:20→12:45)
[2020-04-02] MEDS: HEPARIN DRIP 25,000 UNITS/500 ML PREMIX IV SCH ×3 (01:50→18:25)
[2020-04-02] MEDS: SODIUM CHLORIDE 0.45% 1,000 ML IV SCH ×2 (03:15→12:14)
[2020-04-02] MEDS: methylPREDNISolone SOD SUC 40 MG/1 ML VIAL IV SCH ×3 (05:10→21:23)
[2020-04-02 06:41] LABS: INR 1.8; PT Patient Result 18.5 SECS (9.8-11.9)
[2020-04-02 06:43] LABS: Basophils % 0.1 % (0.0-0.8); Hematocrit 43.2 VOL% (42.0-52.0); Immature Granulocytes % 1.2 %; Immature Granulocytes Absolute 0.23 #; Lymphocytes % 4.9 % (21.2-54.2); Mean Corpuscular HGB Conc 32.4 GM/DL (32-36); Mean Corpuscular Volume 93.5 FL (87-102); Mean Platelet Volume 12.3 FL (9.6-12.0); Monocytes % 2.5 % (1.7-12.7); NRBC # 0.07 10*3/uL; Neutrophils % 91.3 % (38.7-73.9); Red Blood Count 4.62 MC/CUMM (3.8-5.5); Red Cell Distribution Width 15.9 % (9.3-17.3); White Blood Count 19.8 T/CUMM (4-12)
[2020-04-02 06:47] LABS: Platelet Count 52 T/CUMM (130-400)
[2020-04-02 06:58] LABS: Ferritin 296.8 ng/ml (26-388)
[2020-04-02 07:04] LABS: Lymphocytes 1 % (20-55); Nucleated Red Blood Cells 2 (0-5); Platelet Estimate Decreased; Segmented Neutrophils 98 % (50-85); Total Cells Counted 100
[2020-04-02] MEDS: INSULIN REGULAR 100 UNIT/ML SUBCUT SCH ×4 (09:00→21:23)
[2020-04-02] MEDS: MENTHOL/ZINC OXIDE OINT 71 GM JAR TOP SCH ×2 (09:00→21:23)
[2020-04-02] MEDS: SODIUM BICARB INJ 100 MEQ in DEXTROSE 5% 1,000 ML IV SCH ×2 (11:36→22:36)
[2020-04-02 13:24] LABS: Hematocrit 38.6 VOL% (42.0-52.0); Hemoglobin 12.7 GM/DL (14.0-18.0)
[2020-04-02] MEDS ORDERED: VANCOMYCIN INJ 1,250 MG in SODIUM CHLORIDE 0.9% 250 ML IV PRN (15:00)
[2020-04-02 20:31] LABS: Hematocrit 34.6 VOL% (42.0-52.0); Hemoglobin 11.6 GM/DL (14.0-18.0)
[2020-04-02] MEDS ORDERED: cefTRIAXone 1,000 MG in SYRINGE 1 EACH IV SCH (22:00)
[2020-04-03] MEDS: PIPERACILLIN/TAZOBACTAM 3,375 MG in SODIUM CHLORIDE 0.9% 100 ML IV SCH ×2 (01:12→12:04)
[2020-04-03 01:30] LABS: Basophils % 0.1 % (0.0-0.8); Hematocrit 35.7 VOL% (42.0-52.0); Hemoglobin 11.8 GM/DL (14.0-18.0); Immature Granulocytes % 1.2 %; Immature Granulocytes Absolute 0.22 #; Lymphocytes # 0.7 10*3/uL (1.4-4.0); Lymphocytes % 3.6 % (21.2-54.2); Mean Corpuscular HGB Conc 33.1 GM/DL (32-36); Mean Corpuscular Volume 91.5 FL (87-102); Mean Platelet Volume 13.4 FL (9.6-12.0); Monocytes % 3.5 % (1.7-12.7); NRBC # 0.12 10*3/uL; Neutrophils % 91.6 % (38.7-73.9); Red Cell Distribution Width 15.8 % (9.3-17.3); White Blood Count 18.1 T/CUMM (4-12)
[2020-04-03 01:40] LABS: Platelet Count 63 T/CUMM (130-400)
[2020-04-03 02:01] LABS: Albumin 1.9 G/DL (3.4-5.0); Bilirubin,Direct 0.36 MG/DL (0.0-0.20); Bilirubin,Indirect 0.4 MG/DL (0.0-1.0); Bilirubin,Total 0.8 MG/DL (0.2-1.0); Osmolality,Calculated 353.6 MOS/KG (273-304); Total Protein 5.5 G/DL (6.4-8.3)
[2020-04-03 03:27] LABS: Band Neutrophils 1 % (0-10); Lymphocytes 4 % (20-55); Metamyelocytes 1 %; Segmented Neutrophils 92 % (50-85); Total Cells Counted 100
[2020-04-03 03:28] LABS: Anisocytosis Slight; Macrocytosis Slight; Platelet Estimate Decreased
[2020-04-03] MEDS: methylPREDNISolone SOD SUC 40 MG/1 ML VIAL IV SCH ×3 (05:30→21:38)
[2020-04-03 06:27] LABS: INR 1.8; PT Patient Result 18.3 SECS (9.8-11.9)
[2020-04-03] MEDS ORDERED: CLINDAMYCIN INJ 900 MG in PREMIX 1 EACH IV ONE (07:00)
[2020-04-03] MEDS: SODIUM BICARB INJ 100 MEQ in DEXTROSE 5% 1,000 ML IV SCH (08:40)
[2020-04-03] MEDS: MENTHOL/ZINC OXIDE OINT 71 GM JAR TOP SCH ×2 (08:49→21:40)
[2020-04-03] MEDS: INSULIN REGULAR 100 UNIT/ML SUBCUT SCH ×4 (08:49→21:37)
[2020-04-03 09:53] LABS: Hematocrit 35.4 VOL% (42.0-52.0); Hemoglobin 12.1 GM/DL (14.0-18.0)
[2020-04-03] MEDS ORDERED: INSULIN GLARGINE 100 UNIT/ML SUBCUT SCH (10:00)
[2020-04-03] MEDS ORDERED: VANCOMYCIN INJ 1,250 MG in SODIUM CHLORIDE 0.9% 250 ML IV ONE (10:30)
[2020-04-03] MEDS: SODIUM BICARB INJ 75 MEQ in DEXTROSE 5% 1,000 ML IV SCH (11:58)
[2020-04-03] MEDS: HEPARIN DRIP 25,000 UNITS/500 ML PREMIX IV SCH (16:09)
[2020-04-03 19:46] LABS: Hematocrit 35.9 VOL% (42.0-52.0); Hemoglobin 11.9 GM/DL (14.0-18.0)
[2020-04-04] MEDS: PIPERACILLIN/TAZOBACTAM 3,375 MG in SODIUM CHLORIDE 0.9% 100 ML IV SCH ×2 (01:03→12:02)
[2020-04-04] MEDS: SODIUM BICARB INJ 75 MEQ in DEXTROSE 5% 1,000 ML IV SCH ×2 (01:05→11:03)
[2020-04-04] MEDS: INSULIN REGULAR 100 UNIT/ML SUBCUT SCH ×3 (01:22→12:02)
[2020-04-04] MEDS: HEPARIN DRIP 25,000 UNITS/500 ML PREMIX IV SCH (04:40)
[2020-04-04 06:50] LABS: Basophils # 0.2 10*3/uL (0.0-0.2); Basophils % 0.6 % (0.0-0.8); Hematocrit 38.2 VOL% (42.0-52.0); Hemoglobin 12.5 GM/DL (14.0-18.0); Immature Granulocytes % 4.5 %; Immature Granulocytes Absolute 1.18 #; Lymphocytes # 1.7 10*3/uL (1.4-4.0); Lymphocytes % 6.5 % (21.2-54.2); Mean Corpuscular HGB Conc 32.7 GM/DL (32-36); Mean Corpuscular Volume 91.8 FL (87-102); Mean Platelet Volume 14.1 FL (9.6-12.0); Monocytes % 4.6 % (1.7-12.7); NRBC # 2.41 10*3/uL; Neutrophils % 83.8 % (38.7-73.9); Red Blood Count 4.16 MC/CUMM (3.8-5.5); Red Cell Distribution Width 16.4 % (9.3-17.3)
[2020-04-04 06:55] LABS: Platelet Count 88 T/CUMM (130-400); White Blood Count 26.5 T/CUMM (4-12)
[2020-04-04] MEDS ORDERED: CLINDAMYCIN INJ 900 MG in PREMIX 1 EACH IV ONE (07:00)
[2020-04-04 07:12] LABS: Osmolality,Calculated 340.3 MOS/KG (273-304)
[2020-04-04 07:13] LABS: Calcium 8.1 MG/DL (8.5-10.1); Osmolality,Calculated 347.3 MOS/KG (273-304)
[2020-04-04 07:19] LABS: Hypochromasia 1+; Lymphocytes 7 % (20-55); Microcytosis 1+; Nucleated Red Blood Cells 16 (0-5); Polychromasia Slight; Segmented Neutrophils 87 % (50-85); Total Cells Counted 100
[2020-04-04 07:20] LABS: Platelet Estimate Decreased; Target Cells Slight
[2020-04-04] MEDS ORDERED: SODIUM CHLORIDE 0.45% 1,000 ML IV SCH (08:00)
[2020-04-04] MEDS: INSULIN GLARGINE 100 UNIT/ML SUBCUT SCH (08:27)
[2020-04-04] MEDS: MENTHOL/ZINC OXIDE OINT 71 GM JAR TOP SCH ×2 (08:27→20:50)
[2020-04-04] MEDS: methylPREDNISolone SOD SUC 40 MG/1 ML VIAL IV SCH ×2 (10:20→20:50)
[2020-04-04] MEDS ORDERED: ETOMIDATE 40 MG/20 ML VIAL IV ONE (12:57)
[2020-04-04] MEDS ORDERED: ROCURONIUM 50 MG/5 ML VIAL IV ONE (12:58)
[2020-04-04] MEDS ORDERED: PHENYLEPHRINE 1 MG/10 ML SYRINGE IV ONE (13:09)
[2020-04-04] MEDS ORDERED: PHENYLEPHRINE 10 MG/1 ML VIAL IV ONE (13:11)
[2020-04-04] MEDS ORDERED: SODIUM CHLORIDE 0.9% 250 ML IV ONE (13:12)
[2020-04-04] MEDS ORDERED: CALCIUM CHLORIDE 1,000 MG/10 ML VIAL IV ONE (13:15)
[2020-04-04] MEDS ORDERED: ALBUMIN 5% 12.5 GM/250 ML VIAL IV ONE (13:34)
[2020-04-04] MEDS ORDERED: propofoL 200 MG/20 ML VIAL IV ONE (13:44)
[2020-04-04] MEDS ORDERED: SUGAMMADEX 200 MG/2 ML VIAL IV ONE (13:44)
[2020-04-04] MEDS ORDERED: PHENYLEPHRINE DRIP 40 MG/250 ML PREMIX IV ONE (14:27)
[2020-04-04] MEDS ORDERED: cefTRIAXone 2,000 MG in SODIUM CHLORIDE 0.9% 100 ML IV SCH (14:30)
[2020-04-04] MEDS ORDERED: PHENYLEPHRINE DRIP 40 MG/250 ML PREMIX IV PRN (14:32)
[2020-04-04] MEDS ORDERED: INSULIN REGULAR DRIP 100 ML IV SCH (15:08)
[2020-04-04] MEDS: LACTATED RINGERS 1,000 ML IV SCH ×2 (15:35→22:06)
[2020-04-04 16:39] LABS: Calcium 8.4 MG/DL (8.5-10.1); Osmolality,Calculated 344.1 MOS/KG (273-304)
[2020-04-04 21:17] LABS: Calcium 8.1 MG/DL (8.5-10.1); Osmolality,Calculated 347.4 MOS/KG (273-304)
[2020-04-05] MEDS: INSULIN REGULAR 100 UNIT/ML SUBCUT SCH ×6 (05:31→23:30)
[2020-04-05 07:23] LABS: Basophils % 0.1 % (0.0-0.8); Hematocrit 32.6 VOL% (42.0-52.0); Hemoglobin 10.9 GM/DL (14.0-18.0); Immature Granulocytes % 3.7 %; Immature Granulocytes Absolute 1.47 #; Lymphocytes # 2.5 10*3/uL (1.4-4.0); Lymphocytes % 6.3 % (21.2-54.2); Mean Corpuscular HGB Conc 33.4 GM/DL (32-36); Mean Corpuscular Volume 92.4 FL (87-102); Mean Platelet Volume 13.9 FL (9.6-12.0); Monocytes % 5.9 % (1.7-12.7); NRBC # 6.35 10*3/uL; Platelet Count 60 T/CUMM (130-400); Red Blood Count 3.53 MC/CUMM (3.8-5.5); Red Cell Distribution Width 16.5 % (9.3-17.3)
[2020-04-05 07:24] LABS: White Blood Count 40.2 T/CUMM (4-12)
[2020-04-05] MEDS ORDERED: HYDROmorphone 2 MG/1 ML VIAL IV PRN ×2 (07:31→20:00)
[2020-04-05 07:35] LABS: ABG Base Excess 0.4 MMOL/L (-2.5-2.5); ABG HCO3 24.7 MMOL/L (20-26); ABG Oxygen Saturation 94.8 % (95-100); ABG PH 7.502 (7.35-7.45); ABG PO2 70.1 MM HG (80-95); ABG TCO2 20.3 MMOL/L (23-27); Allen Test Positive
[2020-04-05 07:46] LABS: Calcium 8.1 MG/DL (8.5-10.1); Ferritin 219.5 ng/ml (26-388); Osmolality,Calculated 340.7 MOS/KG (273-304)
[2020-04-05 07:55] LABS: Band Neutrophils 1 % (0-10); Hypochromasia 1+; Lymphocytes 1 % (20-55); Macrocytosis Slight; Nucleated Red Blood Cells 23 (0-5); Platelet Estimate Decreased; Polychromasia Slight; Segmented Neutrophils 92 % (50-85); Total Cells Counted 100
[2020-04-05] MEDS: MENTHOL/ZINC OXIDE OINT 71 GM JAR TOP SCH ×2 (08:58→21:13)
[2020-04-05] MEDS: INSULIN GLARGINE 100 UNIT/ML SUBCUT SCH ×2 (08:58→11:34)
[2020-04-05] MEDS: METOPROLOL TARTRATE 25 MG TABLET PO SCH (08:58)
[2020-04-05] MEDS: ENOXAPARIN 100 MG/ML SYRINGE SUBCUT SCH (09:40)
[2020-04-05] MEDS ORDERED: FUROSEMIDE 40 MG/4 ML VIAL IV ONE (10:58)
[2020-04-05] MEDS: cefTRIAXone 2,000 MG in SYRINGE 1 EACH IV SCH (13:49)
[2020-04-06] MEDS: INSULIN REGULAR 100 UNIT/ML SUBCUT SCH ×5 (04:52→20:55)
[2020-04-06 05:51] LABS: Basophils # 0.1 10*3/uL (0.0-0.2); Basophils % 0.1 % (0.0-0.8); Hematocrit 33.8 VOL% (42.0-52.0); Hemoglobin 11.1 GM/DL (14.0-18.0); Immature Granulocytes % 3.7 %; Immature Granulocytes Absolute 1.55 #; Lymphocytes % 4.7 % (21.2-54.2); Mean Corpuscular HGB Conc 32.8 GM/DL (32-36); Monocytes % 5.7 % (1.7-12.7); NRBC # 14.78 10*3/uL; Neutrophils % 85.8 % (38.7-73.9); Red Blood Count 3.52 MC/CUMM (3.8-5.5); Red Cell Distribution Width 17.5 % (9.3-17.3)
[2020-04-06 06:09] LABS: Calcium 7.9 MG/DL (8.5-10.1); Osmolality,Calculated 352.8 MOS/KG (273-304); Platelet Count 47 T/CUMM (130-400); White Blood Count 41.6 T/CUMM (4-12)
[2020-04-06 06:33] LABS: Anisocytosis 2+; Band Neutrophils 4 % (0-10); Lymphocytes 3 % (20-55); Macrocytosis 1+; Nucleated Red Blood Cells 52 (0-5); Ovalocytes Few; Platelet Estimate Decreased; Poikilocytosis Slight; Polychromasia Slight; Segmented Neutrophils 88 % (50-85); Total Cells Counted 100
[2020-04-06] MEDS: ENOXAPARIN 100 MG/ML SYRINGE SUBCUT SCH (09:32)
[2020-04-06] MEDS: METOPROLOL TARTRATE 25 MG TABLET PO SCH (09:32)
[2020-04-06] MEDS: INSULIN GLARGINE 100 UNIT/ML SUBCUT SCH (09:32)
[2020-04-06] MEDS: MENTHOL/ZINC OXIDE OINT 71 GM JAR TOP SCH ×2 (09:33→20:55)
[2020-04-06] MEDS: cefTRIAXone 2,000 MG in SYRINGE 1 EACH IV SCH (15:23)
[2020-04-07] MEDS: INSULIN REGULAR 100 UNIT/ML SUBCUT SCH ×2 (00:35→05:15)
[2020-04-07 04:23] LABS: ABG Base Excess -4.8 MMOL/L (-2.5-2.5); ABG HCO3 20.3 MMOL/L (20-26); ABG Oxygen Saturation 91.4 % (95-100); ABG PCO2 25.2 MM HG (35-48); ABG PH 7.456 (7.35-7.45); ABG PO2 63.6 MM HG (80-95); Allen Test Positive; Pt O2 Delivery Device Ventilator
[2020-04-07 05:39] VITALS: BP 79/45
== END 2020-04-07 05:58 | disposition expired | DRG 853 ==
LOC: EDBD → EDUNIT# → N.ED 23:00 → SUATTDRO 04-01 02:48 → N.EDINP 04-01 02:48 → N.2E 04-01 03:19 → N.ICU 04-04 14:40 → N.5E 04-05 19:05
PROVIDERS: ADMIT Internal Medicine; ATTEND Family Medicine